=== PATIENT | female | born 1985 | race Caucasian/White ===

== ENCOUNTER 2016-02-23 18:35 | Inpatient (IN) | payer OTHER ==
[~2016-02-23] VITALS: Ht 162.6 cm; Wt 74.2 kg
[~2016-02-23 18:35] MED LIST: EFFSR150 PO; NAPR1TAB9 PO; VENL75CA73 PO
[2016-02-23] MEDS ORDERED: IBUP-1050 PO (18:57)
[2016-02-23 19:32] LABS: URINE APPEARANCE CLEAR (CLEAR); URINE BILIRUBIN NEG (NEG); URINE COLOR YELLOW; URINE NITRITE NEG (NEG); URINE PH 6.5 (4.5-7.5); UROBILINOGEN NEG (NEG)
[2016-02-23 19:34] LABS: MANUAL MICROSCOPIC REQUIRED? NO; REVIEW REQ? NO
[2016-02-23 19:35] LABS: BASO % 0.3 %; BASO ABS # 0.03 K/uL (0-0.2); COMPLETE YES; EOS % 0.6 %; HEMATOCRIT 40.8 % (37-47); IG% 0.2 %; LYMPH % 32.2 %; LYMPH ABS # 3.56 K/uL (1.2-3.4); MEAN CELL VOLUME 90.1 fL (80-100); MEAN CORPUSCULAR HEMOGLOBIN 31.8 pg (25-34); MEAN CORPUSCULAR HGB CONC 35.3 g/dl (32-36); MEAN PLATELET VOLUME 10.5 fL (7.4-10.4); MONO % 3.6 %; NEUT % 63.1 %; PLATELET COUNT 291 K/uL (130-400); RED BLOOD COUNT 4.53 M/uL (4.2-5.4); WHITE BLOOD COUNT 11.05 K/uL (4.8-10.8)
[2016-02-23 19:57] LABS: ALT/SGPT 22 U/L (12-78); BLOOD UREA NITROGEN 6 mg/dl (7-18); BUN/CREATININE RATIO 9.7 (10-20); CALCIUM 9.2 mg/dl (8.5-10.1); CARBON DIOXIDE 23 mmol/L (21-32); CHLORIDE 106 mmol/L (98-107); CREATININE 0.64 mg/dl (0.60-1.20); GLUCOSE 89 mg/dl (70-99); POTASSIUM 3.7 mmol/L (3.5-5.1); SODIUM 139 mmol/L (136-145)
[2016-02-23 19:59] LABS: BENZODIAZEPINE, URINE NEG (NEG); COCAINE,URINE NEG (NEG); PHENCYCLIDINE, URINE NEG (NEG)
[2016-02-23 20:07] LABS: ALB/GLOB RATIO 1.3 (0.9-2); ALKALINE PHOSPHATASE 56 U/L (45-117); AST/SGOT 13 U/L (15-37)
[2016-02-23 20:33] VITALS: O2SAT 97
[2016-02-23] MEDS ORDERED: NURSING VERBAL MED ORDER ONE (21:15)
[2016-02-23] MEDS ORDERED: hydrOXYzine HCL 25 MG TAB PO PRN ×2 (21:30)
[2016-02-23] MEDS ORDERED: ACETAMINOPHEN 325 MG TAB PO PRN (21:30)
[2016-02-23] MEDS ORDERED: SODIUM CHLORIDE 0.65% NA SOLN 45 ML (OCEAN) PRN (21:30)
[2016-02-23] MEDS ORDERED: ALUMINUM/MAGNESIUM SUSP 30 ML UDC PO PRN (21:30)
[2016-02-23] MEDS ORDERED: BISMUTH SUBSALICYLATE PER ML OMNICELL CHARGE PO PRN (21:30)
[2016-02-23 22:06] VITALS: BP 122/81; PULSE 67; TEMP 37; Ht 162.6 cm; Wt 74.2 kg
--- NOTE | 2016-02-23 22:51 | EMERGENCY ROOM VISIT NOTE ---
History Report prepared by Kenny: Lucho Luna Under the Supervision of: Dr. Ramiro Benjamin D.O. First contact with patient: 18:53 Chief Complaint: MENTAL HEALTH EVALUATION Stated Complaint: DEPRESSION History of Present Illness The patient is a 30 year old female who presents to the Emergency Room with complaints of sudden suicidal ideation beginning several hours prior to arrival. She states she has lost eight people in the last seven months to heroin overdoses. 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 She states she was driving today and had thoughts of turning the wheel into oncoming traffic twice today. The patient notes this scared her, so she came to the ED for willing admission. She states she has been working a lot over the past couple of months and has not had time to cope with the deaths. The patient notes she is getting back into therapy with her counselor, but they were not able to schedule her for this week. She denies using heroin but notes she has been counseled for depression, anxiety, bipolar disorder and substance abuse, although she has never received a diagnosis. The patient notes she has been drinking every night , but does not think it is an issue. She states she and her friend drink about three-fourths of a wine bottle a night. The patient denies a chance of . Source of History: patient Onset: just prior to arrival Position: other (global) Quality: other (suicidal ideation) Timing: other (sudden) Review of Systems See HPI for pertinent positives & negatives. A total of 10 systems reviewed and were otherwise negative. Past Medical & Surgical Surgical Problems: (1) S/P Family History Cancer Diabetes mellitus Heart disease Hypertension Kidney disease Lung disease Social History Smoking Status: Current Some Day Smoker Alcohol Use: none Drug Use: none Marital Status: single Housing Status: lives with family Occupation Status: employed Current/Historical Medications Scheduled PRN Ibuprofen (Advil), 200-600 MG PO Q4H PRN for Headache Allergies Coded Allergies: No Known Allergies (Verified , ., 02/23/16) Physical Exam Vital Signs Date Time Temp Pulse Resp B/P Pulse Ox O2 Delivery O2 Flow Rate FiO2 02/23/16 20:33 74 16 124/76 97 02/23/16 18:44 36.8 98 20 132/97 100 Room Air Pain Rating (0-10): 0.0 Physical Exam GENERAL: laying in bed, crying, disheveled, non-toxic EYE EXAM: normal conjunctiva OROPHARYNX: no exudate, no erythema, lips, buccal mucosa, and tongue normal and mucous membranes are moist NECK: supple, no nuchal rigidity, no adenopathy, non-tender LUNGS: Clear to auscultation. Normal chest wall mechanics HEART: Tachycardic, no murmurs, S1 normal and S2 normal ABDOMEN: abdomen soft, non-tender, normo-active bowel sounds, no masses, no rebound or guarding. BACK: Back is symmetrical on inspection and there is no deformity, no midline tenderness, no CVA tenderness. SKIN: no rashes and no bruising UPPER EXTREMITIES: upper extremities are grossly normal. LOWER EXTREMITIES: No pitting edema. NEURO EXAM: Normal sensorium, cranial nerves II-XII grossly intact, normal speech, no gross weakness of arms, no gross weakness of legs. PSYCH: Admits to suicidal ideations with plan of driving car into oncoming traffic. Denies auditory or visual hallucinations. Denies homicidal thoughts. Medical Decision & Procedures Laboratory Results 02/23/16 19:12 Red Blood Count 4.53, Mean Corpuscular Volume 90.1, Mean Corpuscular Hemoglobin 31.8, Mean Corpuscular Hemoglobin Concent 35.3, Mean Platelet Volume 10.5, Neutrophils (%) (Auto) 63.1, Lymphocytes (%) (Auto) 32.2, Monocytes (%) (Auto) 3.6, Eosinophils (%) (Auto) 0.6, Basophils (%) (Auto) 0.3, Neutrophils # (Auto) 6.97, Lymphocytes # (Auto) 3.56, Monocytes # (Auto) 0.40, Eosinophils # (Auto) 0.07, Basophils # (Auto) 0.03 02/23/16 19:12 Test 02/23/16 00:00 02/23/16 19:08 02/23/16 19:12 Urine Color YELLOW Urine Appearance CLEAR (CLEAR) Urine pH 6.5 (4.5-7.5) Urine Specific [place] 1.000 (1.000-1.030) Urine Protein NEG (NEG) Urine Glucose (UA) NEG (NEG) Urine Ketones NEG (NEG) Urine Occult Blood NEG (NEG) Urine Nitrite NEG (NEG) Urine Bilirubin NEG (NEG) Urine Urobilinogen NEG (NEG) Urine Leukocyte Esterase NEG (NEG) Urine Test NEG (NEG) Urine Opiates Screen NEG (NEG) Urine Methadone, Qualitative NEG (NEG) Urine Barbiturates NEG (NEG) Urine Phencyclidine (PCP) Level NEG (NEG) Ur Amphetamine/Methamphetamine NEG (NEG) MDMA (Ecstasy) Screen NEG (NEG) Urine Benzodiazepines Screen NEG (NEG) Urine Cocaine Metabolite NEG (NEG) Urine Marijuana (THC) NEG (NEG) Bedside Glucose 102 mg/dl (70-90) White Blood Count 11.05 K/uL (4.8-10.8) Red Blood Count 4.53 M/uL (4.2-5.4) Hemoglobin 14.4 g/dL (12.0-16.0) Hematocrit 40.8 % (37-47) Mean Corpuscular Volume 90.1 fL (80-100) Mean Corpuscular Hemoglobin 31.8 pg (25-34) Mean Corpuscular Hemoglobin Concent 35.3 g/dl (32-36) Platelet Count 291 K/uL (130-400) Mean Platelet Volume 10.5 fL (7.4-10.4) Neutrophils (%) (Auto) 63.1 % Lymphocytes (%) (Auto) 32.2 % Monocytes (%) (Auto) 3.6 % Eosinophils (%) (Auto) 0.6 % Basophils (%) (Auto) 0.3 % Neutrophils # (Auto) 6.97 K/uL (1.4-6.5) Lymphocytes # (Auto) 3.56 K/uL (1.2-3.4) Monocytes # (Auto) 0.40 K/uL (0.11-0.59) Eosinophils # (Auto) 0.07 K/uL (0-0.5) Basophils # (Auto) 0.03 K/uL (0-0.2) RDW Standard Deviation 41.3 fL (36.4-46.3) RDW Coefficient of Variation 12.7 % (11.5-14.5) Immature Granulocyte % (Auto) 0.2 % Immature Granulocyte # (Auto) 0.02 K/uL (0.00-0.02) Anion Gap 10.0 mmol/L (3-11) Est Creatinine Clear Calc Drug Dose 127.2 ml/min Estimated GFR () 137.8 Estimated GFR (Non- 118.9 BUN/Creatinine Ratio 9.7 (10-20) Calcium Level 9.2 mg/dl (8.5-10.1) Total Bilirubin 0.2 mg/dl (0.2-1) Direct Bilirubin < 0.1 mg/dl (0-0.2) Aspartate Amino Transf (AST/SGOT) 13 U/L (15-37) Alanine Aminotransferase (ALT/SGPT) 22 U/L (12-78) Alkaline Phosphatase 56 U/L (45-117) Total Protein 7.0 gm/dl (6.4-8.2) Albumin 3.9 gm/dl (3.4-5.0) Globulin 3.1 gm/dl (2.5-4.0) Albumin/Globulin Ratio 1.3 (0.9-2) Thyroid Stimulating Hormone (TSH) 1.410 uIu/ml (0.300-4.500) Ethyl Alcohol mg/dL < 3.0 mg/dl (0-3) Laboratory results per my review. ED Course ED COURSE: Vital signs were reviewed and showed tachycardia. The patients medical record was reviewed The above diagnostic studies were performed and reviewed. ED treatments and interventions as stated above. 1910: The patient was evaluated in room A6. A complete history and physical examination was performed. 2129: Upon reevaluation, the patient is doing well.I discussed my findings with the patient and she understands and agrees with the treatment plan. Based on the patients age, coexisting illnesses, exam and lab findings the decision to treat as an inpatient was made. The patient remained stable while under my care. The patient will be evaluated for further management. Medical Decision Differential diagnosis: Etiologies such as mood disorder, infection, hypoglycemia, electrolyte abnormalities, cardiac sources, intracerebral event, toxicologic, neurologic, as well as others were entertained. Patient is a 30-year-old female who presents the ER severely depressed who is been taking about killing herself. She does note that on 2 separate occasions today she thought about crashing her car into oncoming traffic. CBC along with BMP, LFTs, TSH and UA was unremarkable. Patient was evaluated by our psychiatric child care associate teacher. She agreed to sign 201. Patient was admitted to [facility]. for mood disorder with depression and suicidal ideations. Impression Primary Impression: Mood disorder Additional Impressions: Depression Suicidal ideation Scribe Attestation The scribe's documentation has been prepared under my direction and personally reviewed by me in its entirety. I confirm that the note above accurately reflects all work, treatment, procedures, and medical decision making performed by me. Departure Information Dispostion Admitted as an inpatient (Psych) Referrals Zach Mulligan M.D. (PCP) Problem Qualifiers Additional Impressions: Depression Depression Type: unspecified Qualified Codes: F32.9 - Major depressive disorder, single episode, unspecified
[2016-02-24 06:49] VITALS: BP_SYST 114; BP_SYST 121; BP_DIAS 65; BP_DIAS 72; PULSE 42; PULSE 48; TEMP 36.7
[2016-02-24 08:51] VITALS: BP 115/69; PULSE 58
[2016-02-24] MEDS ORDERED: FLUOXETINE HCL 20 MG CAP PO ONE (10:30)
--- NOTE | 2016-02-24 11:12 | HISTORY & PHYSICAL EXAMINATION ---
DATE OF ADMISSION: 02/23/2016 IDENTIFYING DATA: Francine Harp is a 30-year-old woman from [place], [place], who is admitted to our unit voluntarily with severe depression and suicidal thinking, having had thoughts to drive her car into oncoming traffic. Information is gathered from the patient and considered to be reliable. CHIEF COMPLAINT: "I've had 8 friends of heroin overdoses in the last 7 months." HISTORY OF PRESENT ILLNESS: Francine Harp is a 30-year-old woman with past psychiatric history of depression and anxiety, most recently treated at [facility]. She has had multiple trials of medications in the past which she felt were helpful but stopped either because she did not want to be on medications or because her insurance changed and she could not afford to be in treatment. She indicates a long history of depression dating back through most of her life as well as chronic anxiety. She first went into treatment in high school when she started on Celexa and had therapy. This was during a time when she was resistant to medicines and so did not stay on that as long as recommended. More recently, the patient reports that she has had 8 friends of heroin overdoses in the last 7 months. 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 She denies that she uses heroin but admittedly has friends who have become heroin addicted. She reports that over the course of the last several years, her mood has been in steady decline. She has wanted to get into treatment more recently but works 2 full-time jobs and so rarely has the opportunity. She did recently phone multiple providers to see who would be able to take her insurance and see her and was able to get an appointment at [facility] for 03/02/2016 with an intake with Ai at 8:45. Yesterday, she had gotten in her car to go to work. She had multiple thoughts about driving her car into oncoming traffic. She describes feeling "scared" and decided that she needed to get treatment because she was not sure she could keep herself safe. She had planned to come to the hospital anyway, not feeling that she could make it to the 03/02/2016 appointment. She went home and got her 11-year-old daughter who is now staying with the patient's mother. Today, the patient continued to describe her mood as depressed with suicidal thoughts. She reports chronically impaired sleep with both difficulty falling asleep as well as staying asleep. She estimates she will get 4 hours of broken sleep per night and experience nightmares every several nights. Her appetite has been pretty good and notes that her weight is up and down, currently stable. She reports anxiety that has been going on "a long time," experiences anxiety most days. She has panic attacks that occur generally when she has to perform in some way, for example being on the shooting range to qualify for gun training as part of the [employer]. She denies that she has ever experienced auditory or visual hallucinations. She admits to cutting behaviors in high school but nothing since. She is a stress eater but denies any eating disordered behaviors such as bingeing or purging. In terms of bipolar symptoms, she does talk about times when her mood is "rainbows and unicorns." These periods last for about 3 days. She talks about spending behaviors, necessitating that her mother control her money, but this sounds like a chronic issue and not isolated to specific periods. She denies any pleasure seeking behaviors. She has never been activated when on SSRIs. CURRENT MEDICATIONS: Ibuprofen p.r.n. PAST PSYCHIATRIC HISTORY: She had most recently seen Dr. Rey prior to having to change insurances. She does not currently have providers in place, but as I said, has an appointment at [facility] on 03/02/2016. She has made 1 suicide attempt 12 years ago when she found out she was . She has never been hospitalized for mental health reasons. She denies any evidence of violence to self or others in the last 6 months. PRIOR MEDICATION TRIALS: Include but are not limited to: 1. Prozac, did pretty well on it. 2. Celexa -- worked well. 3. Effexor -- felt like a zombie. ACCESS TO GUNS: Denies. Says that she is on a no-weapons protocol with the [employer]. ALLERGIES: NKDA. PAST MEDICAL HISTORY: 1. Chiari malformation, asymptomatic. 2. Denies for personal history of obesity, diabetes, dyslipidemia, hypertension or cardiovascular disease. 3. No history for head injury or seizure. 4. Tobacco use disorder -- smoking less than 10 cigarettes per day. 5. Caffeine abuse -- has cut her caffeine use down to about 2 pots per week. FAMILY HISTORY: Positive for biological father with irrational fears, paternal uncle who has been institutionalized. Maternal grandfather has struggled with drugs and alcohol, maternal grandmother has struggled with addictions to alcohol and men. There is no family history for suicide. Medically, maternal grandmother has diabetes, mother has hypertension, maternal grandmother also had a CVA. She denies family history for obesity or dyslipidemia. SUBSTANCE ABUSE HISTORY: In the last year, the patient admits to drinking alcohol regularly. She will share a bottle of wine with a friend most evenings. She denies any legal troubles as a result of substances. She does have a remote history of abusing K2 but has not used that in 2 years. She does smoke marijuana regularly which she believes helps with her anxiety and mood. Last use was on [place]. The only other substance she has used in the last year was possibly 1 line of cocaine but she cannot remember when. Remotely, she admits to the use of opiate pills, amphetamines and cocaine. She has never done intravenous drugs. She has never been in substance use treatment other than to say she did go to [facility] last week twice because it was the only facility that could take her immediately. PERSONAL HISTORY: The patient was born in [place] and moved to [place], back to [place] and several other places when her family was in the . Her parents , mother remarried to a trichologist whom she has a good relationship with. She has 2 older sisters. 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 She had been employed at [employer] but quit there after she became emotionally involved with a prisoner and was accused of doing worse which she said she did not do. 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 She is not currently in a relationship. She has an 11-year-old daughter who is currently with her mother. She does consider herself to be a spiritual individual, enjoys attending nondenominational on Sundays. She denies legal issues. 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 MENTAL STATUS EXAMINATION: A 30-year-old woman wearing glasses with her hair pulled back in a ponytail. She is appropriately dressed and groomed. She makes good eye contact. Motor behavior is significant for nervous shaking of her legs. Speech is at times loud but of normal rate and tone. Affect is somewhat labile, at times laughing and at times on the verge of tears. Mood is depressed and anxious. Thought process is organized and goal directed. She denies thought disorder in the form of hallucinations or delusions. She endorses suicidal thinking with thoughts to drive her car into oncoming traffic. She denies homicidal ideation. Today, she is fully oriented. Memory functions are intact. Fund of knowledge is intact. Intelligence is estimated to be average. Insight and judgment are impaired. VITAL SIGNS: Temp 36.7, pulse 58, respirations 16, blood pressure 115/69. LABORATORIES: 1. CBC with diff -- notable for elevated WBCs 11.05, MPV elevated 10.5. 2. Chem profile -- remarkable for random glucose 102. 3. TSH -- within normal limits at 1.410. 4. Toxicology -- negative. 5. Urinalysis -- without evidence of infection. 6. Urine test -- negative. REVIEW OF SYSTEMS: Positive for complaints of nausea, vomiting and diarrhea under stress. She reports chronic right foot soreness, believing that she may have fractured her foot 2 years ago but never sought medical treatment because she had no insurance. A minimum of 10 systems has been reviewed and otherwise found to be negative. PHYSICAL EXAMINATION: Exam performed by Dr. Benjamin in the Emergency Room last night has been reviewed and accepted for our purposes here in the mental health unit. PATIENT'S STRENGTHS AND NEEDS: 1. Strengths -- intelligence, desire to be in treatment. 2. Needs -- to abstain from all abusable substances. RISK ASSESSMENT: 1. Risk factors -- , single, chronic mental illness, substance use, previous suicide attempt, anxiety. 2. Protective factors -- no access to guns, spiritual beliefs, has an 11-year-old daughter, is employed, good support from family, no comorbid medical conditions impairing recovery. IMPRESSION: A 30-year-old woman admitted with severe depression and suicidality. She reports a long history of depression and anxiety that has in the past responded well to SSRIs. In view of that, we will restart Prozac 20 mg daily, increasing as tolerated. Risks, benefits and side effects were reviewed and accepted including the risk for worsening depression and suicidality in young folks. I have recommended she abstain from all substances while we are stabilizing her anxiety and depression. She describes periods where her mood is elevated but I do not have a sense that this reflects a bipolar symptom, although we will be cautious to any activation on an SSRI. At this time, the patient requires inpatient mental health treatment due to the severity of her condition and the risk for self-harm if discharged. DIAGNOSES: 1. Major depressive disorder, recurrent, severe, without psychotic features. 2. Generalized anxiety disorder. 3. Alcohol abuse. 4. Cannabis abuse. PLAN: Has been reviewed with Dr. Jessica Peacock. 1. Depression. -- start Prozac 20 mg daily. -- q. 15-minute checks for safety. -- encouraged participation in group and individual counseling. -- confirm that daughter is being cared for by mother. -- family meeting. -- the patient has an outpatient appointment with [facility] on 03/02/2016 and we should coordinate care with them. 2. Generalized anxiety disorder. -- Prozac as above. -- assist the patient to learning utilize healthy coping strategies. -- introduce the patient to mindfulness, relaxation and breathing exercises. 3. Alcohol abuse. -- recommend abstaining as she is being stabilized on medications. 4. Cannabis abuse. -- recommend abstaining while in mental health treatment. INITIAL HOSPITAL CARE: [id number]. MTDD
[2016-02-24 12:39] VITALS: BP 116/61; PULSE 42; TEMP 36.6
[2016-02-24 17:57] VITALS: BP 117/77; PULSE 52; TEMP 36.8
[2016-02-24 20:22] VITALS: BP 113/68; PULSE 45; TEMP 36.9
[2016-02-25 06:55] VITALS: BP_SYST 102; BP_SYST 99; BP_DIAS 62; BP_DIAS 63; PULSE 47; PULSE 59; TEMP 36.6
[2016-02-25 08:20] VITALS: BP 121/65; PULSE 61; TEMP 37
[2016-02-25] MEDS: FLUOXETINE HCL 20 MG CAP PO SCH (08:22)
--- NOTE | 2016-02-25 10:38 | Psychiatric Progress Notes ---
Progress Note Date of Service Feb 25, 2016. Interval History 30 yo female admitted 02/23 on a voluntary basis with suicidal thoughts to drive her car into oncoming traffic. she has been under stress working 2 jobs, and having lost 8 friends in 7 months to heroin overdoses. Chief Complaint "Irritable.". Subjective Patient was seen & assessed interval progress reviewed with Treatment Team. The patient says that she feels irritable and impatient today. She thinks in part she is missing cigarettes, but is also irritable after a phone conversation with her mother. Mother has been asked to come in for a family meeting, and patient perceives that she was not happy about this, not wanting to make the patient's problems hers. this was disappointing to Francine, who thinks that her mother herself could benefit from some counseling. 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 Staff report that Francine continued to have SI last evening, but today says that she has had none. Sleep was better than the night before, but broken. Review of Systems Constitutional: No chills, No fatigue, No fever, No problem reported, No sweats , No weakness, No weight loss ENT: No dental problems, No hearing loss, No nasal symptoms, No problem reported, No sore throat, No tinnitus, No trouble swallowing, No unusual epistaxis Respiratory: No cough, No dyspnea at rest, No dyspnea on exertion, No hemoptysis, No problem reported, No shortness of breath, No sputum, No wheezing Cardiovascular: No PND, No chest pain, No claudication, No edema, No orthopnea , No palpitations, No problem reported Abdomen: No GI bleeding, No constipation, No diarrhea, No nausea, No pain, No problem reported, No vomiting Musculoskeletal: No calf pain, No joint pain, No muscle pain, No problem reported, No swelling Neurologic: No balance problems, No memory loss, No numbness/tingling, No paralysis, No problem reported, No vertigo, No weakness Psychiatric: + anxiety, + depression symptoms, + problem reported ("agitated") Integumentary: No bleeding, No color change, No itch, No new/changing skin lesions, No problem reported, No rash Sleep Information Total Hours of Sleep: 6.00 Meal Information Percent of Breakfast Consumed: 100 Percent of Dinner Consumed: 100 Mental Status Exam During interview pt is: alert and oriented, cooperative Appearance: appropriately dressed, appropriately groomed Eye contact is: good Motor behavior is: steady gait & station, no abnormal motor movements Speech: normal in rate, rhythm & volume Affect: mood congruent, blunted Mood is: depressed, irritable Thought process: goal directed, linear, logical Thought content: reality based without delusions Suicidal thought are: denied Homicidal thoughts are: denied Hallucinations: denies auditory, denies visual Cognition: memory grossly intact, attention grossly intact Intelligence estimated to be: average Insight: impaired Judgement: impaired Medication Trials (1) Past psych meds Prozac- worked pretty well Celexa- worked well Effexor- felt like a zombie Last Edited By: Irina Friedman on Feb 25, 2016 10:25 Impression Adjusting well to the structure and support of the unit, but still depressed and agitated. Started prozac and is tolerating without side effects. Mother coming for family meeting tomorrow. Will need to be cautious for activation on SSRI's as she reports some symptoms of elevated moods in the past, that could represent an underlying bipolar diathesis. Continued Inpatient Care The patient continues to require inpatient care due to the severity of her condition and the risk for self harm if discharged. Plan (1) Major depressive disorder, recurrent severe without psychotic features 02/24 - Continue Prozac 20 mg. daily - Family meeting scheduled with mother for tomorrow - Q 15 min checks for safety - Encourage participation in group and individual counseling - The patient will need psychiatric aftercare - Assist the patient to learn and utilize healthy coping strategies (2) KIM (generalized anxiety disorder) 02/24 - Prozac as above -Introduce the patient to mindfulness, relaxation and breathing exercises (3) Polysubstance abuse 02/24 - Recommend abstinence - Encourage OP substance abuse treatment - Educate the patient about the effects of substances on mood Discharge / Aftercare Planning Primary Care Physician: Name: Dr. Mulligan Psychiatrist: Name: will go through [facility] Therapist: Name: Ai Bonilla [facility] Date of Appointment: Mar 02, 2016 Time of Appointment: 8:45am Organizational Development Director: Name: none Visit Code E&M Code: 22750 Inventory Assets Strengths: Willingness to engage in treatment, strong work ethic Needs: To abstain from abusable substances Risk Factors Assessment : Yes /single/: Yes Higher / Fall in social status: No Access to guns: No Health problems: No Mental Health Diagnoses: Yes Substance use disorders: Yes Previous attempt: Yes Previous psychiatric stay: No Smoker: Yes Protective Factors Assessment L[employer] beliefs: Yes : No Responsible for young children: No Employed: Yes Stable relationships: No Supportive family: Yes Data Vital Signs Last 24 Hrs: Date Time Temp Pulse Resp B/P Pulse Ox O2 Delivery O2 Flow Rate FiO2 02/25/16 08:20 37.0 61 16 121/65 02/25/16 06:55 36.6 47 16 102/62 59 99/63 02/24/16 20:22 36.9 45 16 113/68 02/24/16 17:57 36.8 52 16 117/77 02/24/16 12:39 36.6 42 16 116/61 Meds Administered Last 24 Hrs: Meds Administered (Past 24Hrs) Medications (Trade) Dose Ordered Sig/Aracely Route Start Time Stop Time Status Last Admin Dose Admin Fluoxetine HCl (Prozac Cap) 20 mg QAM PO 02/25/16 09:00 03/26/16 08:59 02/25/16 08:22 20 MG Fluoxetine HCl (Prozac Cap) 20 mg NOW ONCE PO 02/24/16 10:30 02/24/16 10:31 DC 02/24/16 10:42 20 MG Lab Results Last 24 Hrs: 02/23/16 19:12 Red Blood Count 4.53, Mean Corpuscular Volume 90.1, Mean Corpuscular Hemoglobin 31.8, Mean Corpuscular Hemoglobin Concent 35.3, Mean Platelet Volume 10.5, Neutrophils (%) (Auto) 63.1, Lymphocytes (%) (Auto) 32.2, Monocytes (%) (Auto) 3.6, Eosinophils (%) (Auto) 0.6, Basophils (%) (Auto) 0.3, Neutrophils # (Auto) 6.97, Lymphocytes # (Auto) 3.56, Monocytes # (Auto) 0.40, Eosinophils # (Auto) 0.07, Basophils # (Auto) 0.03 02/23/16 19:12 Test 02/23/16 00:00 02/23/16 19:08 02/23/16 19:12 Urine Color YELLOW Urine Appearance CLEAR (CLEAR) Urine pH 6.5 (4.5-7.5) Urine Specific [employer] [place] 1.000 (1.000-1.030) Urine Protein NEG (NEG) Urine Glucose (UA) NEG (NEG) Urine Ketones NEG (NEG) Urine Occult Blood NEG (NEG) Urine Nitrite NEG (NEG) Urine Bilirubin NEG (NEG) Urine Urobilinogen NEG (NEG) Urine Leukocyte Esterase NEG (NEG) Urine Test NEG (NEG) Urine Opiates Screen NEG (NEG) Urine Methadone, Qualitative NEG (NEG) Urine Barbiturates NEG (NEG) Urine Phencyclidine (PCP) Level NEG (NEG) Ur Amphetamine/Methamphetamine NEG (NEG) MDMA (Ecstasy) Screen NEG (NEG) Urine Benzodiazepines Screen NEG (NEG) Urine Cocaine Metabolite NEG (NEG) Urine Marijuana (THC) NEG (NEG) Bedside Glucose 102 mg/dl (70-90) White Blood Count 11.05 K/uL (4.8-10.8) Red Blood Count 4.53 M/uL (4.2-5.4) Hemoglobin 14.4 g/dL (12.0-16.0) Hematocrit 40.8 % (37-47) Mean Corpuscular Volume 90.1 fL (80-100) Mean Corpuscular Hemoglobin 31.8 pg (25-34) Mean Corpuscular Hemoglobin Concent 35.3 g/dl (32-36) Platelet Count 291 K/uL (130-400) Mean Platelet Volume 10.5 fL (7.4-10.4) Neutrophils (%) (Auto) 63.1 % Lymphocytes (%) (Auto) 32.2 % Monocytes (%) (Auto) 3.6 % Eosinophils (%) (Auto) 0.6 % Basophils (%) (Auto) 0.3 % Neutrophils # (Auto) 6.97 K/uL (1.4-6.5) Lymphocytes # (Auto) 3.56 K/uL (1.2-3.4) Monocytes # (Auto) 0.40 K/uL (0.11-0.59) Eosinophils # (Auto) 0.07 K/uL (0-0.5) Basophils # (Auto) 0.03 K/uL (0-0.2) RDW Standard Deviation 41.3 fL (36.4-46.3) RDW Coefficient of Variation 12.7 % (11.5-14.5) Immature Granulocyte % (Auto) 0.2 % Immature Granulocyte # (Auto) 0.02 K/uL (0.00-0.02) Anion Gap 10.0 mmol/L (3-11) Est Creatinine Clear Calc Drug Dose 127.2 ml/min Estimated GFR () 137.8 Estimated GFR (Non- 118.9 BUN/Creatinine Ratio 9.7 (10-20) Calcium Level 9.2 mg/dl (8.5-10.1) Total Bilirubin 0.2 mg/dl (0.2-1) Direct Bilirubin < 0.1 mg/dl (0-0.2) Aspartate Amino Transf (AST/SGOT) 13 U/L (15-37) Alanine Aminotransferase (ALT/SGPT) 22 U/L (12-78) Alkaline Phosphatase 56 U/L (45-117) Total Protein 7.0 gm/dl (6.4-8.2) Albumin 3.9 gm/dl (3.4-5.0) Globulin 3.1 gm/dl (2.5-4.0) Albumin/Globulin Ratio 1.3 (0.9-2) Thyroid Stimulating Hormone (TSH) 1.410 uIu/ml (0.300-4.500) Ethyl Alcohol mg/dL < 3.0 mg/dl (0-3)
[2016-02-25 12:32] VITALS: BP 128/71; PULSE 42; TEMP 36.4
[2016-02-25] MEDS: NICOTINE POLACRILEX 2 MG GUM MT PRN ×2 (15:32→18:03)
[2016-02-25 16:11] VITALS: BP 119/68; PULSE 45; TEMP 36.8
[2016-02-25 20:19] VITALS: BP 118/72; PULSE 45; TEMP 37.1
[2016-02-25] MEDS: MAGNESIUM HYDROXIDE SUSP 30 ML UDC PO PRN (20:41)
[2016-02-26 06:52] VITALS: BP_SYST 109; BP_SYST 97; BP_DIAS 54; BP_DIAS 59; PULSE 42; PULSE 48; TEMP 36.5
[2016-02-26 08:05] VITALS: BP 118/68; PULSE 41; TEMP 36.5
[2016-02-26] MEDS: FLUOXETINE HCL 20 MG CAP PO SCH (08:08)
[2016-02-26] MEDS: NICOTINE POLACRILEX 2 MG GUM MT PRN ×2 (09:25→17:36)
[2016-02-26 13:03] VITALS: BP 118/71; PULSE 46; TEMP 36.6
--- NOTE | 2016-02-26 13:23 | Psychiatric Progress Notes ---
Progress Note Date of Service Feb 26, 2016. Interval History 30 yo female admitted 02/23 on a voluntary basis with suicidal thoughts to drive her car into oncoming traffic. she has been under stress working 2 jobs, and having lost 8 friends in 7 months to heroin overdoses. Chief Complaint "Not very good". Subjective Patient was seen & assessed interval progress reviewed with Treatment Team. The patient says that she had a bad meeting with her mother yesterday. Can't recall the specifics, "I think I blocked it out.". She describes her mother as supportive but not sympathetic, and not being on the same page. She talked about feeling "stuck", not moving her life forward, and feeling that it would have to be ok for now, since she can't change it. In exploring what she enjoys in life and what supports her self esteem, she says "work". She doesn 't like being at home and doesn't necessarily like the role as parent. Beyond this, the only thing she says that she likes is camping. Her mood was better this AM , having rated it 7/10, but is much lower now, feeling depressed and frustrated with her life. She does not feel that she is ready to go home, "It will be worse there.". Sleep remains disturbed, waking several times in the night. Appetite is good. She denies SI/HI. Review of Systems Constitutional: No chills, No fatigue, No fever, No problem reported, No sweats , No weakness, No weight loss ENT: No dental problems, No hearing loss, No nasal symptoms, No problem reported, No sore throat, No tinnitus, No trouble swallowing, No unusual epistaxis Respiratory: No cough, No dyspnea at rest, No dyspnea on exertion, No hemoptysis, No problem reported, No shortness of breath, No sputum, No wheezing Abdomen: + constipation (BM today) Musculoskeletal: No calf pain, No joint pain, No muscle pain, No problem reported, No swelling Neurologic: No balance problems, No memory loss, No numbness/tingling, No paralysis, No problem reported, No vertigo, No weakness Psychiatric: + anxiety, + depression symptoms, + insomnia Integumentary: No bleeding, No color change, No itch, No new/changing skin lesions, No problem reported, No rash Sleep Information Total Hours of Sleep: 7.00 Meal Information Percent of Breakfast Consumed: 100 Percent of Lunch Consumed: 100 Percent of Dinner Consumed: 100 Mental Status Exam During interview pt is: alert and oriented, cooperative Appearance: appropriately dressed, appropriately groomed Eye contact is: good Motor behavior is: steady gait & station, no abnormal motor movements Speech: normal in rate, rhythm & volume Affect: mood congruent, blunted Mood is: depressed, irritable Thought process: goal directed, linear, logical Thought content: reality based without delusions Suicidal thought are: denied Homicidal thoughts are: denied Hallucinations: denies auditory, denies visual Cognition: memory grossly intact, attention grossly intact Intelligence estimated to be: average Insight: impaired Judgement: impaired Medication Trials (1) Past psych meds Prozac- worked pretty well Celexa- worked well Effexor- felt like a zombie Last Edited By: Irina Friedman on Feb 25, 2016 10:25 Impression Remains depressed and anxious, not liking her life, and feeling helpless to change it. Family meeting was difficult: mother did not appreciate being brought into the situation and doesn't support the patient's decisions in general, but helps her with her daughter when needed. Patient was described as childlike during the meeting, sounding petulant and immature. Is tolerating start of Prozac 20 mg. without side effects. No evidence of withdrawal and so will DC AWSS protocol. Continued Inpatient Care The patient continues to require inpatient care due to the severity of her condition and the risk for self harm if discharged. Plan (1) Major depressive disorder, recurrent severe without psychotic features 02/24 - Continue Prozac 20 mg. daily - Family meeting scheduled with mother for tomorrow - Q 15 min checks for safety - Encourage participation in group and individual counseling - The patient will need psychiatric aftercare - Assist the patient to learn and utilize healthy coping strategies (2) KIM (generalized anxiety disorder) 02/24 - Prozac as above -Introduce the patient to mindfulness, relaxation and breathing exercises (3) Polysubstance abuse 02/24 - Recommend abstinence - Encourage OP substance abuse treatment - Educate the patient about the effects of substances on mood 02/25 - DC AWSS protocol, no evidence of withdrawal syndrome Discharge / Aftercare Planning Primary Care Physician: Name: Dr. Mulligan Appointment Notes: As needed Psychiatrist: Name: will go through [facility] Therapist: Name: Ai Irene [facility] Date of Appointment: Mar 02, 2016 Time of Appointment: 8:45am Puller Through: Name: none Visit Code E&M Code: 78851 Inventory Assets Strengths: Willingness to engage in treatment, strong work ethic Needs: To abstain from abusable substances Risk Factors Assessment : Yes /single/: Yes Higher / Fall in social status: No Access to guns: No Health problems: No Mental Health Diagnoses: Yes Substance use disorders: Yes Previous attempt: Yes Previous psychiatric stay: No Smoker: Yes Protective Factors Assessment [employer] beliefs: Yes : No Responsible for young children: No Employed: Yes Stable relationships: No Supportive family: Yes Data Vital Signs Last 24 Hrs: Date Time Temp Pulse Resp B/P Pulse Ox O2 Delivery O2 Flow Rate FiO2 02/26/16 13:03 36.6 46 16 118/71 02/26/16 08:05 36.5 41 16 118/68 02/26/16 06:52 36.5 42 14 97/54 48 109/59 02/25/16 20:19 37.1 45 16 118/72 02/25/16 16:11 36.8 45 16 119/68 Meds Administered Last 24 Hrs: Meds Administered (Past 24Hrs) Medications (Trade) Dose Ordered Sig/Aracely Route Start Time Stop Time Status Last Admin Dose Admin Fluoxetine HCl (Prozac Cap) 20 mg QAM PO 02/25/16 09:00 03/26/16 08:59 02/26/16 08:08 20 MG Nicotine Polacrilex (Nicorette 2MG Gum) 1 piece PRN PRN MT 02/25/16 15:30 03/26/16 15:29 02/26/16 09:25 1 PIECE Lab Results Last 24 Hrs: 02/23/16 19:12 Red Blood Count 4.53, Mean Corpuscular Volume 90.1, Mean Corpuscular Hemoglobin 31.8, Mean Corpuscular Hemoglobin Concent 35.3, Mean Platelet Volume 10.5, Neutrophils (%) (Auto) 63.1, Lymphocytes (%) (Auto) 32.2, Monocytes (%) (Auto) 3.6, Eosinophils (%) (Auto) 0.6, Basophils (%) (Auto) 0.3, Neutrophils # (Auto) 6.97, Lymphocytes # (Auto) 3.56, Monocytes # (Auto) 0.40, Eosinophils # (Auto) 0.07, Basophils # (Auto) 0.03 02/23/16 19:12 Test 02/23/16 00:00 02/23/16 19:08 02/23/16 19:12 Urine Color YELLOW Urine Appearance CLEAR (CLEAR) Urine pH 6.5 (4.5-7.5) Urine Specific [place] 1.000 (1.000-1.030) Urine Protein NEG (NEG) Urine Glucose (UA) NEG (NEG) Urine Ketones NEG (NEG) Urine Occult Blood NEG (NEG) Urine Nitrite NEG (NEG) Urine Bilirubin NEG (NEG) Urine Urobilinogen NEG (NEG) Urine Leukocyte Esterase NEG (NEG) Urine Test NEG (NEG) Urine Opiates Screen NEG (NEG) Urine Methadone, Qualitative NEG (NEG) Urine Barbiturates NEG (NEG) Urine Phencyclidine (PCP) Level NEG (NEG) Ur Amphetamine/Methamphetamine NEG (NEG) MDMA (Ecstasy) Screen NEG (NEG) Urine Benzodiazepines Screen NEG (NEG) Urine Cocaine Metabolite NEG (NEG) Urine Marijuana (THC) NEG (NEG) Bedside Glucose 102 mg/dl (70-90) White Blood Count 11.05 K/uL (4.8-10.8) Red Blood Count 4.53 M/uL (4.2-5.4) Hemoglobin 14.4 g/dL (12.0-16.0) Hematocrit 40.8 % (37-47) Mean Corpuscular Volume 90.1 fL (80-100) Mean Corpuscular Hemoglobin 31.8 pg (25-34) Mean Corpuscular Hemoglobin Concent 35.3 g/dl (32-36) Platelet Count 291 K/uL (130-400) Mean Platelet Volume 10.5 fL (7.4-10.4) Neutrophils (%) (Auto) 63.1 % Lymphocytes (%) (Auto) 32.2 % Monocytes (%) (Auto) 3.6 % Eosinophils (%) (Auto) 0.6 % Basophils (%) (Auto) 0.3 % Neutrophils # (Auto) 6.97 K/uL (1.4-6.5) Lymphocytes # (Auto) 3.56 K/uL (1.2-3.4) Monocytes # (Auto) 0.40 K/uL (0.11-0.59) Eosinophils # (Auto) 0.07 K/uL (0-0.5) Basophils # (Auto) 0.03 K/uL (0-0.2) RDW Standard Deviation 41.3 fL (36.4-46.3) RDW Coefficient of Variation 12.7 % (11.5-14.5) Immature Granulocyte % (Auto) 0.2 % Immature Granulocyte # (Auto) 0.02 K/uL (0.00-0.02) Anion Gap 10.0 mmol/L (3-11) Est Creatinine Clear Calc Drug Dose 127.2 ml/min Estimated GFR () 137.8 Estimated GFR (Non- 118.9 BUN/Creatinine Ratio 9.7 (10-20) Calcium Level 9.2 mg/dl (8.5-10.1) Total Bilirubin 0.2 mg/dl (0.2-1) Direct Bilirubin < 0.1 mg/dl (0-0.2) Aspartate Amino Transf (AST/SGOT) 13 U/L (15-37) Alanine Aminotransferase (ALT/SGPT) 22 U/L (12-78) Alkaline Phosphatase 56 U/L (45-117) Total Protein 7.0 gm/dl (6.4-8.2) Albumin 3.9 gm/dl (3.4-5.0) Globulin 3.1 gm/dl (2.5-4.0) Albumin/Globulin Ratio 1.3 (0.9-2) Thyroid Stimulating Hormone (TSH) 1.410 uIu/ml (0.300-4.500) Ethyl Alcohol mg/dL < 3.0 mg/dl (0-3)
--- NOTE | 2016-02-26 15:14 | Psych Management Progress Note ---
Psychiatry Miscellaneous Date of Service: Feb 26, 2016. I personally met patient today and participated in the medical decision making outlined by ABIGAIL Eaton. Patient expressed understanding of her treatment plan and had no concerns re: her care here or med plan.
[2016-02-27 06:57] VITALS: BP_SYST 109; BP_SYST 118; BP_DIAS 64; BP_DIAS 66; PULSE 42; PULSE 47; TEMP 36.8
[2016-02-27] MEDS: FLUOXETINE HCL 20 MG CAP PO SCH (09:01)
--- NOTE | 2016-02-27 10:06 | Psych Management Progress Note ---
Psychiatry Miscellaneous Date of Service: Feb 27, 2016. Patient seen, MS assessed. Notes difficulty with garage worker awakening. Recognizes that she has conflicts with mother but would also "go to war for her ". Cooperative with care and treatment plan as outlined by MOLDED PARTS INSPECTOR. Encouraged participation in therapeutic activities.
--- NOTE | 2016-02-27 10:51 | Psychiatric Progress Notes ---
Progress Note Date of Service Feb 27, 2016. Interval History 30 yo female admitted 02/23 on a voluntary basis with suicidal thoughts to drive her car into oncoming traffic. she has been under stress working 2 jobs, and having lost 8 friends in 7 months to heroin overdoses. Chief Complaint "I didn't sleep well last night.". Subjective Patient was seen & assessed interval progress reviewed with Treatment Team. The patient says that she could not fall asleep last night, even after taking a prn vistaril. She has a long history of impaired sleep, and would like to try some meds to help. She says that she's at a point in her life where she needs to make some changes. She generally keeps herself busy because "down time is not my friend", but needs to find some balance to her life. She generally work so hard that on the one day off she does have, she is too tired to do the things that she needs to do. Her mother and daughter visited last night, and generally had a good visit. Mother was social which surprised Francine, but there was no serious discussion. Her mood today is good, rated 7-8.5/10 and is denying SI. Anxiety is "there", "not as bad". She is also complaining of constipation since she is not running or smoking. Review of Systems Constitutional: + fatigue ENT: No dental problems, No hearing loss, No nasal symptoms, No problem reported, No sore throat, No tinnitus, No trouble swallowing, No unusual epistaxis Respiratory: No cough, No dyspnea at rest, No dyspnea on exertion, No hemoptysis, No problem reported, No shortness of breath, No sputum, No wheezing Cardiovascular: No PND, No chest pain, No claudication, No edema, No orthopnea , No palpitations, No problem reported Abdomen: + constipation Musculoskeletal: No calf pain, No joint pain, No muscle pain, No problem reported, No swelling Neurologic: No balance problems, No memory loss, No numbness/tingling, No paralysis, No problem reported, No vertigo, No weakness Psychiatric: + anxiety, + depression symptoms (improving) Integumentary: No bleeding, No color change, No itch, No new/changing skin lesions, No problem reported, No rash Sleep Information Total Hours of Sleep: 7.50 Meal Information Percent of Breakfast Consumed: 100 Percent of Lunch Consumed: 100 Percent of Dinner Consumed: 100 Mental Status Exam During interview pt is: alert and oriented, cooperative Appearance: appropriately dressed, appropriately groomed Eye contact is: good Motor behavior is: steady gait & station, no abnormal motor movements Speech: normal in rate, rhythm & volume Affect: mood congruent, blunted Mood is: depressed, irritable Thought process: goal directed, linear, logical Thought content: reality based without delusions Suicidal thought are: denied Homicidal thoughts are: denied Hallucinations: denies auditory, denies visual Cognition: memory grossly intact, attention grossly intact Intelligence estimated to be: average Insight: impaired Judgement: impaired Medication Trials (1) Past psych meds Prozac- worked pretty well Celexa- worked well Effexor- felt like a zombie Last Edited By: Irina Friedman on Feb 25, 2016 10:25 Impression Some improvement to mood and anxiety today, but very poor sleep. Will trial trazodone 50 mg. HS for sleep. R/B/A reviewed and accepted. Says she may have been on it before. Will continue Prozac 20 mg. If improvement continues, could consider discharge early in the week. Continued Inpatient Care The patient continues to require inpatient care due to the severity of her condition and the risk for self harm if discharged. Plan (1) Major depressive disorder, recurrent severe without psychotic features 02/24 - Continue Prozac 20 mg. daily - Family meeting scheduled with mother for tomorrow - Q 15 min checks for safety - Encourage participation in group and individual counseling - The patient will need psychiatric aftercare - Assist the patient to learn and utilize healthy coping strategies 02/26 - Trazodone 50 mg. HS for insomnia - Continue Prozac 20 mg. daily (2) KIM (generalized anxiety disorder) 02/24 - Prozac as above -Introduce the patient to mindfulness, relaxation and breathing exercises 02/26 - Continue prozac 20 mg. - Explore life balance with patient (3) Polysubstance abuse 02/24 - Recommend abstinence - Encourage OP substance abuse treatment - Educate the patient about the effects of substances on mood 02/25 - DC AWSS protocol, no evidence of withdrawal syndrome Discharge / Aftercare Planning Primary Care Physician: Name: Dr. Mulligan Appointment Notes: As needed Psychiatrist: Name: will go through [facility] Therapist: Name: Ai Bonilla [facility] Date of Appointment: Mar 02, 2016 Time of Appointment: 8:45am Children'S Minister: Name: none Visit Code E&M Code: 97757 Inventory Assets Strengths: Willingness to engage in treatment, strong work ethic Needs: To abstain from abusable substances Risk Factors Assessment : Yes /single/: Yes Higher / Fall in social status: No Access to guns: No Health problems: No Mental Health Diagnoses: Yes Substance use disorders: Yes Previous attempt: Yes Previous psychiatric stay: No Smoker: Yes Protective Factors Assessment Congregation beliefs: Yes : No Responsible for young children: No Employed: Yes Stable relationships: No Supportive family: Yes Data Vital Signs Last 24 Hrs: Date Time Temp Pulse Resp B/P Pulse Ox O2 Delivery O2 Flow Rate FiO2 02/27/16 06:57 36.8 42 16 118/64 47 109/66 02/26/16 13:03 36.6 46 16 118/71 Meds Administered Last 24 Hrs: Meds Administered (Past 24Hrs) Medications (Trade) Dose Ordered Sig/Aracely Route Start Time Stop Time Status Last Admin Dose Admin Nicotine Polacrilex (Nicorette 2MG Gum) 1 piece PRN PRN MT 02/25/16 15:30 03/26/16 15:29 02/26/16 17:36 1 PIECE Lab Results Last 24 Hrs: 02/23/16 19:12 Red Blood Count 4.53, Mean Corpuscular Volume 90.1, Mean Corpuscular Hemoglobin 31.8, Mean Corpuscular Hemoglobin Concent 35.3, Mean Platelet Volume 10.5, Neutrophils (%) (Auto) 63.1, Lymphocytes (%) (Auto) 32.2, Monocytes (%) (Auto) 3.6, Eosinophils (%) (Auto) 0.6, Basophils (%) (Auto) 0.3, Neutrophils # (Auto) 6.97, Lymphocytes # (Auto) 3.56, Monocytes # (Auto) 0.40, Eosinophils # (Auto) 0.07, Basophils # (Auto) 0.03 02/23/16 19:12 Test 02/23/16 00:00 02/23/16 19:08 02/23/16 19:12 Urine Color YELLOW Urine Appearance CLEAR (CLEAR) Urine pH 6.5 (4.5-7.5) Urine Specific [place] 1.000 (1.000-1.030) Urine Protein NEG (NEG) Urine Glucose (UA) NEG (NEG) Urine Ketones NEG (NEG) Urine Occult Blood NEG (NEG) Urine Nitrite NEG (NEG) Urine Bilirubin NEG (NEG) Urine Urobilinogen NEG (NEG) Urine Leukocyte Esterase NEG (NEG) Urine Test NEG (NEG) Urine Opiates Screen NEG (NEG) Urine Methadone, Qualitative NEG (NEG) Urine Barbiturates NEG (NEG) Urine Phencyclidine (PCP) Level NEG (NEG) Ur Amphetamine/Methamphetamine NEG (NEG) MDMA (Ecstasy) Screen NEG (NEG) Urine Benzodiazepines Screen NEG (NEG) Urine Cocaine Metabolite NEG (NEG) Urine Marijuana (THC) NEG (NEG) Bedside Glucose 102 mg/dl (70-90) White Blood Count 11.05 K/uL (4.8-10.8) Red Blood Count 4.53 M/uL (4.2-5.4) Hemoglobin 14.4 g/dL (12.0-16.0) Hematocrit 40.8 % (37-47) Mean Corpuscular Volume 90.1 fL (80-100) Mean Corpuscular Hemoglobin 31.8 pg (25-34) Mean Corpuscular Hemoglobin Concent 35.3 g/dl (32-36) Platelet Count 291 K/uL (130-400) Mean Platelet Volume 10.5 fL (7.4-10.4) Neutrophils (%) (Auto) 63.1 % Lymphocytes (%) (Auto) 32.2 % Monocytes (%) (Auto) 3.6 % Eosinophils (%) (Auto) 0.6 % Basophils (%) (Auto) 0.3 % Neutrophils # (Auto) 6.97 K/uL (1.4-6.5) Lymphocytes # (Auto) 3.56 K/uL (1.2-3.4) Monocytes # (Auto) 0.40 K/uL (0.11-0.59) Eosinophils # (Auto) 0.07 K/uL (0-0.5) Basophils # (Auto) 0.03 K/uL (0-0.2) RDW Standard Deviation 41.3 fL (36.4-46.3) RDW Coefficient of Variation 12.7 % (11.5-14.5) Immature Granulocyte % (Auto) 0.2 % Immature Granulocyte # (Auto) 0.02 K/uL (0.00-0.02) Anion Gap 10.0 mmol/L (3-11) Est Creatinine Clear Calc Drug Dose 127.2 ml/min Estimated GFR () 137.8 Estimated GFR (Non- 118.9 BUN/Creatinine Ratio 9.7 (10-20) Calcium Level 9.2 mg/dl (8.5-10.1) Total Bilirubin 0.2 mg/dl (0.2-1) Direct Bilirubin < 0.1 mg/dl (0-0.2) Aspartate Amino Transf (AST/SGOT) 13 U/L (15-37) Alanine Aminotransferase (ALT/SGPT) 22 U/L (12-78) Alkaline Phosphatase 56 U/L (45-117) Total Protein 7.0 gm/dl (6.4-8.2) Albumin 3.9 gm/dl (3.4-5.0) Globulin 3.1 gm/dl (2.5-4.0) Albumin/Globulin Ratio 1.3 (0.9-2) Thyroid Stimulating Hormone (TSH) 1.410 uIu/ml (0.300-4.500) Ethyl Alcohol mg/dL < 3.0 mg/dl (0-3)
[2016-02-27] MEDS: POLYETHYLENE (MIRALAX) 17 GM PACK PO PRN (11:25)
[2016-02-27] MEDS: NICOTINE POLACRILEX 2 MG GUM MT PRN (15:13)
[2016-02-27] MEDS: MAGNESIUM HYDROXIDE SUSP 30 ML UDC PO PRN (19:58)
[2016-02-27] MEDS ORDERED: TRAZODONE HCL 50 MG TAB PO SCH (22:00)
[2016-02-28 06:50] VITALS: BP_SYST 111; BP_SYST 121; BP_DIAS 66; BP_DIAS 69; PULSE 41; PULSE 42; TEMP 36.8
[2016-02-28] MEDS: FLUOXETINE HCL 20 MG CAP PO SCH (09:04)
[2016-02-28] MEDS: NICOTINE POLACRILEX 2 MG GUM MT PRN (09:31)
[2016-02-28] MEDS: POLYETHYLENE (MIRALAX) 17 GM PACK PO PRN (10:42)
--- NOTE | 2016-02-28 10:43 | Psychiatric Progress Notes ---
Progress Note Date of Service Feb 28, 2016. Interval History 30 yo female admitted 02/23 on a voluntary basis with suicidal thoughts to drive her car into oncoming traffic. she has been under stress working 2 jobs, and having lost 8 friends in 7 months to heroin overdoses. Chief Complaint "I don't like that trazodone.". Subjective Patient was seen & assessed interval progress reviewed with nursing. She starts by saying that she felt "drugged" on trazodone and does not want to continue. Sleep was only minimally improved with it. She says that her mother visited again last night and describes it as "pleasant". She is feeling "better " and thinks she is ready to go home and take on her life. She still thinks that it would be a good idea for her to leave this area to get away from her mother so that they can have more "adult to adult" interactions rather than the parent child interactions. Her anxiety to day is "a little" but thinks it is normal. Denies SI/HI, rates her mood 7/10. Review of Systems Constitutional: + fatigue ENT: No dental problems, No hearing loss, No nasal symptoms, No problem reported, No sore throat, No tinnitus, No trouble swallowing, No unusual epistaxis Respiratory: No cough, No dyspnea at rest, No dyspnea on exertion, No hemoptysis, No problem reported, No shortness of breath, No sputum, No wheezing Cardiovascular: + problem reported (had small BM today) Abdomen: No GI bleeding, No constipation, No diarrhea, No nausea, No pain, No problem reported, No vomiting Musculoskeletal: No calf pain, No joint pain, No muscle pain, No problem reported, No swelling Psychiatric: + problem reported (Reports improved mood) Integumentary: No bleeding, No color change, No itch, No new/changing skin lesions, No problem reported, No rash Sleep Information Total Hours of Sleep: 6.50 Meal Information Percent of Breakfast Consumed: 100 Percent of Lunch Consumed: 100 Percent of Dinner Consumed: 100 Mental Status Exam During interview pt is: alert and oriented, cooperative Appearance: appropriately dressed, appropriately groomed Eye contact is: good Motor behavior is: steady gait & station, no abnormal motor movements Speech: normal in rate, rhythm & volume Affect: mood congruent, blunted Mood is: depressed, irritable Thought process: goal directed, linear, logical Thought content: reality based without delusions Suicidal thought are: denied Homicidal thoughts are: denied Hallucinations: denies auditory, denies visual Cognition: memory grossly intact, attention grossly intact Intelligence estimated to be: average Insight: impaired Judgement: impaired Medication Trials (1) Past psych meds Prozac- worked pretty well Celexa- worked well Effexor- felt like a zombie Last Edited By: Irina Friedman on Feb 25, 2016 10:25 Impression Mood continues to improve and she has submitted her 72 hr notice wanting to leave. She denies SI. Will DC trazodone as she did not like the way she felt with it. Will continue Prozac. If progress continues, will consider DC tomorrow. Continued Inpatient Care The patient continues to require inpatient care due to the severity of her condition and the risk for self harm if discharged. Plan (1) Major depressive disorder, recurrent severe without psychotic features 02/24 - Continue Prozac 20 mg. daily - Family meeting scheduled with mother for tomorrow - Q 15 min checks for safety - Encourage participation in group and individual counseling - The patient will need psychiatric aftercare - Assist the patient to learn and utilize healthy coping strategies 02/26 - Trazodone 50 mg. HS for insomnia - Continue Prozac 20 mg. daily 02/27 - DC trazodone (2) KIM (generalized anxiety disorder) 02/24 - Prozac as above -Introduce the patient to mindfulness, relaxation and breathing exercises 02/26 - Continue prozac 20 mg. - Explore life balance with patient (3) Polysubstance abuse 02/24 - Recommend abstinence - Encourage OP substance abuse treatment - Educate the patient about the effects of substances on mood 02/25 - DC AWSS protocol, no evidence of withdrawal syndrome Discharge / Aftercare Planning Primary Care Physician: Name: Dr. Mulligan Appointment Notes: As needed Psychiatrist: Name: will go through [facility] Therapist: Name: Ai Bonilla [facility] Date of Appointment: Mar 02, 2016 Time of Appointment: 8:45am Director Of Development And Marketing: Name: none Visit Code E&M Code: 36176 Inventory Assets Strengths: Willingness to engage in treatment, strong work ethic Needs: To abstain from abusable substances Risk Factors Assessment : Yes /single/: Yes Higher / Fall in social status: No Access to guns: No Health problems: No Mental Health Diagnoses: Yes Substance use disorders: Yes Previous attempt: Yes Previous psychiatric stay: No Smoker: Yes Protective Factors Assessment [place] beliefs: Yes : No Responsible for young children: No Employed: Yes Stable relationships: No Supportive family: Yes Data Vital Signs Last 24 Hrs: Date Time Temp Pulse Resp B/P Pulse Ox O2 Delivery O2 Flow Rate FiO2 02/28/16 06:50 36.8 41 16 111/69 42 121/66 Meds Administered Last 24 Hrs: Meds Administered (Past 24Hrs) Medications (Trade) Dose Ordered Sig/Aracely Route Start Time Stop Time Status Last Admin Dose Admin Polyethylene (Miralax Powder Packet) 17 gm DAILY PRN PO 02/27/16 10:45 03/28/16 10:44 02/27/16 11:25 17 GM Trazodone HCl (Desyrel Tab) 50 mg HS PO 02/27/16 22:00 03/28/16 21:59 02/27/16 21:10 50 MG Lab Results Last 24 Hrs: 02/23/16 19:12 Red Blood Count 4.53, Mean Corpuscular Volume 90.1, Mean Corpuscular Hemoglobin 31.8, Mean Corpuscular Hemoglobin Concent 35.3, Mean Platelet Volume 10.5, Neutrophils (%) (Auto) 63.1, Lymphocytes (%) (Auto) 32.2, Monocytes (%) (Auto) 3.6, Eosinophils (%) (Auto) 0.6, Basophils (%) (Auto) 0.3, Neutrophils # (Auto) 6.97, Lymphocytes # (Auto) 3.56, Monocytes # (Auto) 0.40, Eosinophils # (Auto) 0.07, Basophils # (Auto) 0.03 02/23/16 19:12 Test 02/23/16 00:00 02/23/16 19:08 02/23/16 19:12 Urine Color YELLOW Urine Appearance CLEAR (CLEAR) Urine pH 6.5 (4.5-7.5) Urine Specific [place] 1.000 (1.000-1.030) Urine Protein NEG (NEG) Urine Glucose (UA) NEG (NEG) Urine Ketones NEG (NEG) Urine Occult Blood NEG (NEG) Urine Nitrite NEG (NEG) Urine Bilirubin NEG (NEG) Urine Urobilinogen NEG (NEG) Urine Leukocyte Esterase NEG (NEG) Urine Test NEG (NEG) Urine Opiates Screen NEG (NEG) Urine Methadone, Qualitative NEG (NEG) Urine Barbiturates NEG (NEG) Urine Phencyclidine (PCP) Level NEG (NEG) Ur Amphetamine/Methamphetamine NEG (NEG) MDMA (Ecstasy) Screen NEG (NEG) Urine Benzodiazepines Screen NEG (NEG) Urine Cocaine Metabolite NEG (NEG) Urine Marijuana (THC) NEG (NEG) Bedside Glucose 102 mg/dl (70-90) White Blood Count 11.05 K/uL (4.8-10.8) Red Blood Count 4.53 M/uL (4.2-5.4) Hemoglobin 14.4 g/dL (12.0-16.0) Hematocrit 40.8 % (37-47) Mean Corpuscular Volume 90.1 fL (80-100) Mean Corpuscular Hemoglobin 31.8 pg (25-34) Mean Corpuscular Hemoglobin Concent 35.3 g/dl (32-36) Platelet Count 291 K/uL (130-400) Mean Platelet Volume 10.5 fL (7.4-10.4) Neutrophils (%) (Auto) 63.1 % Lymphocytes (%) (Auto) 32.2 % Monocytes (%) (Auto) 3.6 % Eosinophils (%) (Auto) 0.6 % Basophils (%) (Auto) 0.3 % Neutrophils # (Auto) 6.97 K/uL (1.4-6.5) Lymphocytes # (Auto) 3.56 K/uL (1.2-3.4) Monocytes # (Auto) 0.40 K/uL (0.11-0.59) Eosinophils # (Auto) 0.07 K/uL (0-0.5) Basophils # (Auto) 0.03 K/uL (0-0.2) RDW Standard Deviation 41.3 fL (36.4-46.3) RDW Coefficient of Variation 12.7 % (11.5-14.5) Immature Granulocyte % (Auto) 0.2 % Immature Granulocyte # (Auto) 0.02 K/uL (0.00-0.02) Anion Gap 10.0 mmol/L (3-11) Est Creatinine Clear Calc Drug Dose 127.2 ml/min Estimated GFR () 137.8 Estimated GFR (Non- 118.9 BUN/Creatinine Ratio 9.7 (10-20) Calcium Level 9.2 mg/dl (8.5-10.1) Total Bilirubin 0.2 mg/dl (0.2-1) Direct Bilirubin < 0.1 mg/dl (0-0.2) Aspartate Amino Transf (AST/SGOT) 13 U/L (15-37) Alanine Aminotransferase (ALT/SGPT) 22 U/L (12-78) Alkaline Phosphatase 56 U/L (45-117) Total Protein 7.0 gm/dl (6.4-8.2) Albumin 3.9 gm/dl (3.4-5.0) Globulin 3.1 gm/dl (2.5-4.0) Albumin/Globulin Ratio 1.3 (0.9-2) Thyroid Stimulating Hormone (TSH) 1.410 uIu/ml (0.300-4.500) Ethyl Alcohol mg/dL < 3.0 mg/dl (0-3)
[2016-02-28] MEDS: MAGNESIUM HYDROXIDE SUSP 30 ML UDC PO PRN (20:43)
[2016-02-29 06:58] VITALS: BP_SYST 109; BP_SYST 121; BP_DIAS 64; BP_DIAS 71; PULSE 41; PULSE 42; TEMP 36.7
[2016-02-29] MEDS: FLUOXETINE HCL 20 MG CAP PO SCH (09:05)
[2016-02-29] MEDS ORDERED: NCR2 MT (09:35)
[2016-02-29] MEDS ORDERED: FLUO20CA36 PO (09:35)
--- NOTE | 2016-02-29 09:46 | Discharge Instructions ---
Discharge Information Report Includes Report will include the: Discharge Instructions & Summary Admission Admission Date / Time: Feb 23, 2016 at 21:07 Reason for Admission: Depression Discharge Discharge Diagnosis / Problem: Depression Condition at Discharge: Good Discharge Goals Goal(s): Decrease discomfort, Improve disease control, Prevent Disease Progression Activity Recommendations Activity Limitations: resume your previous activity . Instructions / Follow-Up Instructions / Follow-Up . SPECIAL CARE INSTRUCTIONS: 1. Follow through with your scheduled aftercare appointments. If unable to keep an appointment, please call to reschedule. 2. Take your medication only as prescribed. Medication should not be changed or stopped without the approval of your doctor. In the event of worsening symptoms or concerns about side effects, contact your doctor immediately. 3. Utilize new healthy coping skills, anger management skills, and stress management skills learned during your hospitalization. Journal feelings and process them with a support person. Identify stressors or situations that may result in relapse, deterioration or inappropriate behaviors and develop a plan to deal with those issues. 4. If your coping skills are ineffective and you are in crisis, contact your outpatient providers for direction. If unable to reach your providers, please call the CAN HELP LINE AT or go to the closest Emergency Room. 5. Avoid alcohol and un-prescribed drugs. 6. You have been provided with the Mental Health Advance Directives Pamphlet for your review. AFTERCARE APPOINTMENTS: * Please call your insurance company prior to your scheduled appointment to confirm your aftercare providers are covered. Take your insurance information to your appointments. . Discharge / Aftercare Planning Primary Care Physician: Name: Dr. Mulligan Appointment Notes: As needed Psychiatrist: Name: will go through [facility] Therapist: Name Of Therapist: Ai Bonilla [facility] Date of Appointment: Mar 02, 2016 Time of Appointment: 8:45am Pulmonary Function Technician: Name: none . Follow-Up Care Plan for Follow-Up Care: The patient will have an intake for psychiatric services at [facility] on 03/02/16 Current Hospital Diet Patient's current hospital diet: Regular Diet Discharge Diet Recommended Diet: Regular Diet Procedures Procedures Performed: No Pending Studies Pending Studies at Discharge: No Medical Emergencies . Who to Call and When: Medical Emergencies: For questions or emergencies related to your hospital stay, please contact the Inpatient Behavioral Health Unit at [phone]. A planting machine crewman is on-call 29/08 for the Behavioral Health Unit for emergencies At any time you feel your situation is an emergency, you may also call 911 immediately. . Non-Emergent Contact Non-Emergency issues call your: Primary Care Provider, Psychiatrist, Therapist Advance Directives Existing Advance Directive: Yes Do You Have an Existing Mental: No Existing Living Will: Yes Existing Power of Bag Machine Adjuster: Yes The Person Making Decisions: Mother: Lilia Harp Advance Directives Info Given: To Pt/S.O. Discharge Summary Admission HPI Per the Admitting provider: Please see attached H&P Hospital Course (1) Major depressive disorder, recurrent severe without psychotic features 02/24 - Continue Prozac 20 mg. daily - Family meeting scheduled with mother for tomorrow - Q 15 min checks for safety - Encourage participation in group and individual counseling - The patient will need psychiatric aftercare - Assist the patient to learn and utilize healthy coping strategies 02/26 - Trazodone 50 mg. HS for insomnia - Continue Prozac 20 mg. daily 02/27 - DC trazodone (2) KIM (generalized anxiety disorder) 02/24 - Prozac as above -Introduce the patient to mindfulness, relaxation and breathing exercises 02/26 - Continue prozac 20 mg. - Explore life balance with patient (3) Polysubstance abuse 02/24 - Recommend abstinence - Encourage OP substance abuse treatment - Educate the patient about the effects of substances on mood 02/25 - DC AWSS protocol, no evidence of withdrawal syndrome Risk Factors Assessment : Yes /single/: Yes Higher / Fall in social status: No Access to guns: No Health problems: No Mental Health Diagnoses: Yes Substance use disorders: Yes Previous attempt: Yes Previous psychiatric stay: No Smoker: Yes Protective Factors Assessment [employer] beliefs: Yes : No Responsible for young children: No Employed: Yes Stable relationships: No Supportive family: Yes Day of Discharge Assessment COURSE OF HOSPITALIZATION: During the patient's 6 day stay, she was restarted on Prozac 20 mg daily and tolerated this without side effect. She remained quite anxious with suicidal thinking during the first part of her stay in response to the multiple losses she has had and a difficult relationship with her mother. Mother was involved in a family meeting. During meeting mother was very araya and unsympathetic with Jessenia acting very childlike. Mother did not want to be involved in such a meeting but said that she would be supportive. Jessenia floated the idea of moving to [place] which the mother did not support. Jessenia understands that her mother has been supportive of her but does not have the kind of adults [place] relationship that makes very comfortable. She decided after the meeting to rely on her mother less and to make some alterations in her work schedule to allow for more life balance. She improved throughout her hospitalization and was without suicidal thinking by day of discharge. She did submit a 72 hour notice to insure discharge. DAY OF DISCHARGE ASSESSMENT: Today the patient is requesting discharge. She feels improved over admission, without any suicidal thinking and ready to go home. She has thought about giving her 2 week notice at one of her jobs in maintaining the other in order to give her more time at home area and she would also like to pursue other work ventures. Today she is casually and appropriately dressed and groomed. Gait and station are within normal limits. Eye contact is good. Affect is smiling. Speech is of normal rate volume and tone. Thoughts are organized and goal directed and without evidence of thought disorder. He sent and remote memory are intact per conversation. Intelligence is estimated to be average. Insight and judgment are improved over admission. Laboratory 02/23/16 19:12 Red Blood Count 4.53, Mean Corpuscular Volume 90.1, Mean Corpuscular Hemoglobin 31.8, Mean Corpuscular Hemoglobin Concent 35.3, Mean Platelet Volume 10.5, Neutrophils (%) (Auto) 63.1, Lymphocytes (%) (Auto) 32.2, Monocytes (%) (Auto) 3.6, Eosinophils (%) (Auto) 0.6, Basophils (%) (Auto) 0.3, Neutrophils # (Auto) 6.97, Lymphocytes # (Auto) 3.56, Monocytes # (Auto) 0.40, Eosinophils # (Auto) 0.07, Basophils # (Auto) 0.03 02/23/16 19:12 Test 02/23/16 00:00 02/23/16 19:08 02/23/16 19:12 Urine Color YELLOW Urine Appearance CLEAR (CLEAR) Urine pH 6.5 (4.5-7.5) Urine Specific [place] 1.000 (1.000-1.030) Urine Protein NEG (NEG) Urine Glucose (UA) NEG (NEG) Urine Ketones NEG (NEG) Urine Occult Blood NEG (NEG) Urine Nitrite NEG (NEG) Urine Bilirubin NEG (NEG) Urine Urobilinogen NEG (NEG) Urine Leukocyte Esterase NEG (NEG) Urine Test NEG (NEG) Urine Opiates Screen NEG (NEG) Urine Methadone, Qualitative NEG (NEG) Urine Barbiturates NEG (NEG) Urine Phencyclidine (PCP) Level NEG (NEG) Ur Amphetamine/Methamphetamine NEG (NEG) MDMA (Ecstasy) Screen NEG (NEG) Urine Benzodiazepines Screen NEG (NEG) Urine Cocaine Metabolite NEG (NEG) Urine Marijuana (THC) NEG (NEG) Bedside Glucose 102 mg/dl (70-90) White Blood Count 11.05 K/uL (4.8-10.8) Red Blood Count 4.53 M/uL (4.2-5.4) Hemoglobin 14.4 g/dL (12.0-16.0) Hematocrit 40.8 % (37-47) Mean Corpuscular Volume 90.1 fL (80-100) Mean Corpuscular Hemoglobin 31.8 pg (25-34) Mean Corpuscular Hemoglobin Concent 35.3 g/dl (32-36) Platelet Count 291 K/uL (130-400) Mean Platelet Volume 10.5 fL (7.4-10.4) Neutrophils (%) (Auto) 63.1 % Lymphocytes (%) (Auto) 32.2 % Monocytes (%) (Auto) 3.6 % Eosinophils (%) (Auto) 0.6 % Basophils (%) (Auto) 0.3 % Neutrophils # (Auto) 6.97 K/uL (1.4-6.5) Lymphocytes # (Auto) 3.56 K/uL (1.2-3.4) Monocytes # (Auto) 0.40 K/uL (0.11-0.59) Eosinophils # (Auto) 0.07 K/uL (0-0.5) Basophils # (Auto) 0.03 K/uL (0-0.2) RDW Standard Deviation 41.3 fL (36.4-46.3) RDW Coefficient of Variation 12.7 % (11.5-14.5) Immature Granulocyte % (Auto) 0.2 % Immature Granulocyte # (Auto) 0.02 K/uL (0.00-0.02) Anion Gap 10.0 mmol/L (3-11) Est Creatinine Clear Calc Drug Dose 127.2 ml/min Estimated GFR () 137.8 Estimated GFR (Non- 118.9 BUN/Creatinine Ratio 9.7 (10-20) Calcium Level 9.2 mg/dl (8.5-10.1) Total Bilirubin 0.2 mg/dl (0.2-1) Direct Bilirubin < 0.1 mg/dl (0-0.2) Aspartate Amino Transf (AST/SGOT) 13 U/L (15-37) Alanine Aminotransferase (ALT/SGPT) 22 U/L (12-78) Alkaline Phosphatase 56 U/L (45-117) Total Protein 7.0 gm/dl (6.4-8.2) Albumin 3.9 gm/dl (3.4-5.0) Globulin 3.1 gm/dl (2.5-4.0) Albumin/Globulin Ratio 1.3 (0.9-2) Thyroid Stimulating Hormone (TSH) 1.410 uIu/ml (0.300-4.500) Ethyl Alcohol mg/dL < 3.0 mg/dl (0-3) Total Time Total Time Spent (min): Greater than 30 minutes Total Time Included: examination of the patient, discharge planning, medication reconciliation, communication with other providers Tobacco Cessation at Discharge FDA approved Prescription: nicotine replacement product (Nicotine gum)
[2016-02-29] MEDS: NICOTINE POLACRILEX 2 MG GUM MT PRN (10:56)
== END 2016-02-29 14:03 | disposition home or self-care (01) | DRG 885 ==
LOC: ENRESERVDT → ENRESERVTM → C.EDB 18:38 → C.MHU 21:07
PROVIDERS: ADMIT Psychiatry & Neurology Child & Adolescent Psychiatry; ATTEND Psychiatry & Neurology Psychiatry
DX: F33.2 Major depressive disorder, recurrent severe without psychotic features (principal); R45.851 Suicidal ideations; F41.1 Generalized anxiety disorder; F10.10 Alcohol abuse, uncomplicated; F12.10 Cannabis abuse, uncomplicated; G47.00 Insomnia, unspecified; F17.210 Nicotine dependence, cigarettes, uncomplicated; F19.10 Other psychoactive substance abuse, uncomplicated; F15.10 Other stimulant abuse, uncomplicated; Q07.00 Arnold-Chiari syndrome without spina bifida or hydrocephalus

== ENCOUNTER 2021-01-07 06:30 | Inpatient (IN) ==
[2021-01-07 07:25] LABS: Amphetamines+Metham, Urine Neg (Neg); Barbiturates, Urine Neg (Neg); Benzodiazepine, Urine Neg (Neg); Cocaine, Urine Neg (Neg); MDMA (Ecstacy), Urine Neg (Neg); Methadone, Urine Neg (Neg); Opiate, Urine Neg (Neg); Phencyclidine, Urine Neg (Neg)
[2021-01-07] MEDS ORDERED: cefOXitin 2,000 MG in DEXTROSE 5% 50 ML IV STA (07:33)
[2021-01-07] MEDS ORDERED: SODIUM CHLORIDE 0.9% 250 ML IV PRN (07:37)
[2021-01-07] MEDS ORDERED: LACTATED RINGER'S 1,000 ML IV SCH (07:45)
[2021-01-07] MEDS ORDERED: CITRIC ACID/SODIUM CITRATE 15 ML UDC PO SCH (07:45)
[2021-01-07] MEDS ORDERED: fentaNYL citrate 100 MCG/2 ML VIAL ONE (07:59)
[2021-01-07] MEDS ORDERED: PROPOFOL IV EMULSION 10 MG/ML 20 ML VIAL IV ONE (07:59)
[2021-01-07] MEDS ORDERED: SUCCINYLCHOLINE CHLORIDE 20 MG/ML 10 ML VIAL IV ONE (07:59)
[2021-01-07] MEDS ORDERED: OXYTOCIN 10 UNITS/ML VIAL ONE (07:59)
[2021-01-07] MEDS ORDERED: ONDANSETRON INJ 2 MG/ML 2 ML VIAL ONE (07:59)
[2021-01-07] MEDS ORDERED: DEXAMETHASONE SOD INJ 4 MG/ML VIAL ONE (07:59)
[2021-01-07 08:16] LABS: Basophils # (auto) 0.02 K/uL (0-0.2); Basophils % (auto) 0.1 %; Eosinophils # (auto) 0.23 K/uL (0-0.5); Eosinophils % (auto) 1.5 %; Hematocrit (blood only) 28.3 % (37-47); Hemoglobin 9.2 g/dL (12.0-16.0); Immature Granulocytes # (auto) 0.06 K/uL (0.00-0.02); Immature Granulocytes % (auto) 0.4 %; Lymphocytes # (auto) 2.65 K/uL (1.2-3.4); Lymphocytes % (auto) 17.2 %; Mean Corpuscular Hemoglobin 26.2 pg (25-34); Mean Corpuscular Hgb Conc 32.5 g/dL (32-36); Mean Corpuscular Volume 80.6 fL (80-100); Mean Platelet Volume 10.2 fL (7.4-10.4); Monocytes # (auto) 0.65 K/uL (0.11-0.59); Monocytes % (auto) 4.2 %; Neutrophils # (auto) 11.81 K/uL (1.4-6.5); Neutrophils % (auto) 76.6 %; Platelet Count 421 K/uL (130-400); RDW Coefficient of Variation 14.8 % (11.5-14.5); RDW Standard Deviation 43.6 fL (36.4-46.3); Red Blood Count 3.51 M/uL (4.2-5.4); White Blood Count 15.42 K/uL (4.8-10.8)
[2021-01-07] MEDS ORDERED: ROCURONIUM BROMIDE 10 MG/ML 5 ML VIAL IV ONE (09:23)
[2021-01-07] MEDS ORDERED: GLYCOPYRROLATE 0.2 MG/ML VIAL ONE (09:23)
[2021-01-07] MEDS ORDERED: NEOSTIGMINE METHYLSULFATE 1 MG/ML 10ML VIAL ONE (09:23)
[2021-01-07] MEDS ORDERED: OXYTOCIN 10 UNITS/ML VIAL IM ONE (09:34)
[2021-01-07] MEDS ORDERED: ONDANSETRON INJ 2 MG/ML 2 ML VIAL IV PRN ×2 (09:46→09:50)
[2021-01-07] MEDS ORDERED: PROMETHAZINE HCL 6.25 MG in SODIUM CHLORIDE 0.9% 50 ML IV PRN (09:46)
[2021-01-07] MEDS ORDERED: ATROPINE SULFATE 0.1 MG/ML 10ML SYR IV PRN (09:46)
[2021-01-07] MEDS ORDERED: fentaNYL citrate 100 MCG/2 ML VIAL IV PRN (09:46)
[2021-01-07] MEDS ORDERED: ePHEDrine sulfate 50 MG/ML AMP IV PRN (09:46)
--- NOTE | 2021-01-07 09:49 | Post Operative Brief Note ---
Immediate Post Op Note v1 Date of Surgery January 07, 2021 Pre & Post Diagnosis Operation Date: 01/07/21 08:20 Pre-Op Diagnosis: Previous Section. Rupture of membranes. Macrosomia. Post-Op Diagnosis: Same as above. I identified the patient and participated in the time-out.: Yes Procedure Operation Date: 01/07/21 08:20 Actual Procedures p Section in LD delivery of live female child at 0905(Bilateral) - Parrish Duncan MD Surgeon Parrish Duncan MD Mine Captain Dr Celaya Estimated Blood Loss 500 Findings Consistent with Post-Op Diagnosis no adhesions Drains Lora Catheter (placed in labor and delivery draining clear yellow urine) Anesthesia Type General Complications none
[2021-01-07] MEDS ORDERED: MEPERIDINE HCL 50 MG/ML CARP IV PRN (09:50)
[2021-01-07] MEDS ORDERED: HYDROCORTISONE ACETATE 25 MG SUPP PR PRN (09:50)
[2021-01-07] MEDS ORDERED: BENZOCAINE 20% AER SPR 82.5 GM CAN EXT PRN (09:50)
[2021-01-07] MEDS ORDERED: PROMETHAZINE HCL 25 MG in SODIUM CHLORIDE 0.9% 50 ML IV PRN (09:50)
[2021-01-07] MEDS ORDERED: diphenhydrAMINE Capsule 25 MG CAP PO PRN (09:50)
[2021-01-07] MEDS ORDERED: SUPERCREAM 0.870% 15 GM JAR EXT PRN (09:50)
[2021-01-07] MEDS ORDERED: DIPHTHERIA/TETANUS/PERTUSSIS 0.5 ML SYR/VIAL IM ONE (09:50)
[2021-01-07] MEDS ORDERED: MAGNESIUM HYDROXIDE SUSP 30 ML UDC PO PRN (09:50)
[2021-01-07] MEDS ORDERED: ZOLPIDEM TARTRATE 5 MG TAB PO PRN (09:50)
[2021-01-07] MEDS ORDERED: SENNA 8.6 MG TAB PO PRN (09:50)
[2021-01-07] MEDS ORDERED: diphenhydrAMINE 50 MG/ML VIAL IV PRN (09:50)
[2021-01-07] MEDS ORDERED: KETOROLAC 30 MG/ML VIAL IV PRN (09:50)
[2021-01-07] MEDS: HYDROmorphone INJ 1 MG/ML SYRINGE IV PRN ×4 (10:16→10:54)
--- NOTE | 2021-01-07 10:33 | Anesthesiology Progress Note ---
Date of Service January 07, 2021 Anesthesia Post Procedure Vital Signs Vital Signs: Temp Pulse Resp BP 01/07/21 06:43 36.6 C 93 H 16 159/80 H Transfer of Care Handoff Completed per policy Notes Mental Status: alert / awake / arousable and participated in evaluation Patient Amnestic to Procedure: Yes Nausea / Vomiting: adequately controlled Pain: improving with treatment Airway Patency, RR, SpO2: stable & adequate BP & HR: stable & adequate Hydration State: stable & adequate Anesthetic Complications: no major complications apparent and Pt Satisfied with anesthetic care
[2021-01-07] MEDS ORDERED: HYDROmorphone INJ 1 MG/ML SYRINGE IV STA (11:02)
--- NOTE | 2021-01-07 11:16 | Operative Report (OR) ---
DATE OF PROCEDURE: 01/07/2021. The patient is a 2, para 2, blood type is A positive. PREOPERATIVE DIAGNOSES: Intrauterine at 38 weeks 5 days, cecille rupture of membranes, previ ous , hypertension. POSTOPERATIVE DIAGNOSES: Intrauterine at 38 weeks 5 days, cecille rupture of membranes, prev ious , hypertension, delivered macrosomic female . SURGEON: Cora Duncan MD. INJECTION MOLDING MACHINE TENDER: Donovan Celaya MD. ESTIMATED BLOOD LOSS: 500 mL ANESTHESIA: General. OPERATIVE FINDING AND PROCEDURE: The patient was brought to the OR table, correctly identified by graciela estrada and conversation. A catheter was placed in the bladder, connected to gravity drainage. Compre ssion stockings were applied. Lower abdomen and umbilical area was painted with an alcohol based yenifer rilizing solution and draped in the usual sterile fashion. General anesthesia was then administered and as soon as it was effective, the procedure was started. Incision was made through a previous sca r, carried down to the anterior fascia by sharp dissection. Hemostasis was secured by electrocauteri zation. Fascia was incised transversely, from the underlying muscle by blunt and sharp dis section. Recti muscles were in the midline, exposing the peritoneum, which was carefully r aised and entered. Incision was made above the vesicouterine fold. Bladder was undermined bluntly, pushed out of the op erative field. Lower uterine segment was scored and entered with the scissors. Clear amniotic fluid was seen at this time. Vectis retractor was applied to the infant's head with fundal pressure, the head was delivered. Infant was suctioned through the mouth and the nose. Shoulders were delivered. Finally, cord blood was stripped, the cord was clamped and cut and the was attended to by the recovery assistant who was scrubbed and present at the time of delivery. Cord blood was taken. Then, navid centa was removed manually, sent for examination. 10 units of Pitocin was injected directly into the uterus. Uterus was brought out through the incisi on. Uterine cavity was wiped clean with a clean sponge. Myometrium was approximated in layers. The muscular layer was approximated with a continuous interlocking suture of heavy chromic and a second layer was approximated with a continuous interlocking suture of heavy duty Vicryl and then there was about 5 [id number] sutures of Vicryl, which was placed over this to further the approximation, a good thick approximation of the lower uterine segment. The bladder flap was restored with a running 3-0 plain suture. Pelvis was cleansed of all blood clots and debris. Uterine incision was checked and found to be hemostatic. Tubes and ovaries were normal. There were reinserted into the abdominal cavity. Careful anatomical approximation was now performed. The peritoneum was closed with a mattr ess suture of chromic catgut. Recti muscles were approximated with interrupted [id number] sutur e chromic catgut. Fascia was closed with continuous interlocking suture of Vicryl on each side tied in the midline. Subcutaneous was approximated with a continuous plain. The skin edges were approxim ated with staple clips. Job ID: [id number]
[2021-01-07] MEDS ORDERED: HYDROmorphone PCA 30 MG/30 ML IV PRN (11:21)
[2021-01-07] MEDS ORDERED: NALOXONE HCL 0.4 MG/1 ML VIAL/CARP IV PRN (11:21)
[2021-01-07] MEDS ORDERED: SODIUM CHLORIDE 0.9% 1000ML 1,000 ML IV SCH (11:30)
[2021-01-07] MEDS ORDERED: OXYTOCIN 20 UNITS in LACTATED RINGER'S 1,000 ML IV SCH (12:00)
[2021-01-07] MEDS ORDERED: FLUARIX QUADRIVALENT 0.5 ML SYR IM ONE (12:35)
[2021-01-07] MEDS: LABETALOL HCL 200 MG TAB PO SCH ×2 (17:49→23:48)
[2021-01-07] MEDS: DOCUSATE SODIUM 100 MG CAP PO SCH (20:17)
[2021-01-07] MEDS: SIMETHICONE 80 MG CHEW PO SCH (20:19)
[2021-01-07] MEDS: LACTATED RINGER'S 1,000 ML IV SCH (20:20)
[2021-01-07] MEDS ORDERED: LABETALOL HCL 100 MG TAB PO SCH (21:00)
[2021-01-08] MEDS: LACTATED RINGER'S 1,000 ML IV SCH (04:36)
[2021-01-08 07:14] LABS: Hemoglobin 7.6 g/dL (12.0-16.0); Mean Corpuscular Hemoglobin 25.7 pg (25-34); Mean Corpuscular Hgb Conc 31.7 g/dL (32-36); Mean Corpuscular Volume 81.1 fL (80-100); Mean Platelet Volume 10.1 fL (7.4-10.4); Platelet Count 382 K/uL (130-400); RDW Coefficient of Variation 14.9 % (11.5-14.5); RDW Standard Deviation 43.9 fL (36.4-46.3); Red Blood Count 2.96 M/uL (4.2-5.4); White Blood Count 19.38 K/uL (4.8-10.8)
[2021-01-08 07:31] LABS: Basophils # (auto) 0.02 K/uL (0-0.2); Basophils % (auto) 0.1 %; Eosinophils # (auto) 0.07 K/uL (0-0.5); Eosinophils % (auto) 0.4 %; Immature Granulocytes % (auto) 0.5 %; Lymphocytes # (auto) 3.44 K/uL (1.2-3.4); Lymphocytes % (auto) 17.8 %; Monocytes # (auto) 1.22 K/uL (0.11-0.59); Monocytes % (auto) 6.3 %; Neutrophils # (auto) 14.53 K/uL (1.4-6.5); Neutrophils % (auto) 74.9 %; RBC Morphology Unremarkable
[2021-01-08] MEDS: DOCUSATE SODIUM 100 MG CAP PO SCH ×2 (08:42→22:17)
[2021-01-08] MEDS: FERROUS SULFATE 325 MG TAB PO SCH (08:42)
[2021-01-08] MEDS: SIMETHICONE 80 MG CHEW PO SCH ×3 (08:42→18:27)
[2021-01-08] MEDS: LABETALOL HCL 200 MG TAB PO SCH ×3 (08:43→22:17)
[2021-01-08] MEDS: PRENATAL VITAMIN 1 TAB PO SCH (08:43)
--- NOTE | 2021-01-08 12:31 | Obstetrical Progress Note ---
Date of Service January 08, 2021 Assessment & Plan Admission and Anticipated Discharge Date Admission Date: January 07, 2021 Subjective abdomen soft and non tender bowel sounds present and normal bandage removed incision is clean and dry no calf tenderness ambulating well vaginal bleeding scant hgb 7.6 Results & Data ([facility]) Vital Signs (Past 12 Hours) Vital Signs Temp Pulse Resp BP Pulse Ox 01/08/21 04:14 36.7 C 67 18 150/72 H 96
[2021-01-08] MEDS: oxyCODONE/ACETAMINOPHEN 5mg/325mg TAB PO PRN ×2 (14:40→18:24)
[2021-01-08] MEDS: IBUPROFEN 600 MG TAB PO PRN (18:23)
[2021-01-08] MEDS ORDERED: bisacodyL 5 MG TABEC PO SCH (20:00)
[2021-01-09] MEDS: IBUPROFEN 600 MG TAB PO PRN ×4 (00:59→17:17)
[2021-01-09] MEDS: oxyCODONE/ACETAMINOPHEN 5mg/325mg TAB PO PRN ×4 (01:00→17:16)
[2021-01-09 07:31] LABS: Hematocrit (blood only) 23.7 % (37-47); Hemoglobin 7.3 g/dL (12.0-16.0)
[2021-01-09] MEDS: SIMETHICONE 80 MG CHEW PO SCH ×5 (08:20→20:08)
[2021-01-09] MEDS: DOCUSATE SODIUM 100 MG CAP PO SCH ×2 (08:21→20:08)
[2021-01-09] MEDS: PRENATAL VITAMIN 1 TAB PO SCH (08:21)
[2021-01-09] MEDS: FERROUS SULFATE 325 MG TAB PO SCH (08:21)
[2021-01-09] MEDS: LABETALOL HCL 200 MG TAB PO SCH ×3 (08:22→20:08)
--- NOTE | 2021-01-09 09:36 | Obstetrical Progress Note ---
Date of Service January 09, 2021 Assessment & Plan Admission and Anticipated Discharge Date Admission Date: January 07, 2021 Subjective abdomen soft and non tender incision is clean and dry passing flatus no calf tenderness ambulating well vaginal bleeding scant hgb 7.3 Results & Data ([facility]) Vital Signs (Past 12 Hours) Vital Signs Temp Pulse Resp BP Pulse Ox 01/09/21 07:27 36.7 C 79 18 143/84 H 95 01/09/21 01:19 90 131/81 01/08/21 22:00 36.9 C 73 18 144/77 H 96
[2021-01-09] MEDS ORDERED: bisacodyL 10 MG SUPP PR PRN (09:50)
[2021-01-09] MEDS ORDERED: Nursing to Pharmacy Communication SCH (18:30)
[2021-01-09] MEDS: LACTATED RINGER'S 1,000 ML IV SCH (18:49)
[2021-01-10] MEDS: IBUPROFEN 600 MG TAB PO PRN ×2 (06:07→10:14)
[2021-01-10] MEDS: oxyCODONE/ACETAMINOPHEN 5mg/325mg TAB PO PRN ×2 (06:07→10:15)
[2021-01-10] MEDS: SIMETHICONE 80 MG CHEW PO SCH (08:16)
[2021-01-10] MEDS: PRENATAL VITAMIN 1 TAB PO SCH (08:16)
[2021-01-10] MEDS: DOCUSATE SODIUM 100 MG CAP PO SCH (08:16)
[2021-01-10] MEDS: LABETALOL HCL 200 MG TAB PO SCH (08:16)
[2021-01-10] MEDS: FERROUS SULFATE 325 MG TAB PO SCH (08:16)
--- NOTE | 2021-01-10 10:11 | Obstetrical Progress Note ---
Date of Service January 10, 2021 Assessment & Plan Admission and Anticipated Discharge Date Admission Date: January 07, 2021 Subjective abdomen soft and non tender passing flatus incision is clean and dry no calf tenderness ambulating well vaginal bleeding scant hgb 7.3 Results & Data ([facility]) Vital Signs (Past 12 Hours) Vital Signs Temp Pulse Resp BP Pulse Ox 01/10/21 08:05 36.8 C 77 16 133/84 98 01/09/21 23:00 36.8 C 75 16 128/75 98
[2021-01-10 10:26] LABS: Hematocrit (blood only) 24.9 % (37-47); Hemoglobin 7.8 g/dL (12.0-16.0)
--- NOTE | 2021-01-10 13:26 | Discharge Summary (DS) ---
DATE OF NOTE: 01/10/2021. The patient is a 4, para 2, blood type A positive, group B strep negative, had a previous hugh arean section. Presently was scheduled for repeat section. was complicated by hy pertension for which she ended up on labetalol. At the time of admission, she was on 100 mg 3 times a day. A day prior to her scheduled section, she called with cecille rupture of membranes. She was admi tted to the hospital, cecille rupture of membranes were confirmed. She was having contractions, an urg ent section was then performed under general anesthesia. Her preoperative hemoglobin was 9. 7. At the time of the , estimated blood loss was only about 500 mL. It should also be noted that the baby's weight was 10 pounds 5 ounces. Postoperatively, the patient did well, although her hemoglobin did drop to 7.3. Her labetalol dose h ad to be increased from 100 mg 3 times a day to 200 mg 3 times a day and she was given iron and vitam ins and also instructed to continue to take vitamins and supplemental iron when she got home . She remained afebrile throughout her entire postoperative course. The bandage was removed on the f irst postoperative day. Within 24 hours, she was ambulating well, eating well, passing gas. On third postoperative day, she was ready for discharge. Incision was clean and dry. Pain was well controll ed with oral pain medicine. She was given prescriptions for ibuprofen and Percocet and also labetalol 200 mg 3 times a day. She was told to return to the office to have removal of robyn within about a week and she also had an appointment with her therapist concerning any possible recurrence of postp artum depression. Job ID: [id number]
== END 2021-01-10 12:15 | disposition home or self-care (01) | DRG 787 ==
LOC: OPB 06:30 → 4S1 06:33 → 4S2 08:30

== ENCOUNTER 2022-05-03 20:01 | Observation (INO) ==
[2022-05-03] MEDS ORDERED: SODIUM CHLORIDE 0.9% 1000ML 1,000 ML IV ONE ×2 (20:44→22:25)
[2022-05-03 21:44] LABS: Hematocrit (blood only) 43.1 % (37.0-47.0); Hemoglobin 15.1 g/dl (12.0-16.0); Mean Corpuscular Hemoglobin 30.1 pg (25.0-34.0); Platelet Count 341 K/uL (130-400); RDW Coefficient of Variation 12.1 % (11.5-14.5); Red Blood Count 5.01 M/uL (4.20-5.40); White Blood Count 20.25 K/ul (4.8-10.8)
[2022-05-03 22:08] LABS: Basophils # (auto) 0.06 K/uL (0-0.2); Basophils % (auto) 0.3 %; Immature Granulocytes % (auto) 0.5 %; Lymphocytes # (auto) 0.97 K/uL (1.2-3.4); Lymphocytes % (auto) 4.8 %; Monocytes % (auto) 1.5 %; Neutrophils # (auto) 18.82 K/uL (1.40-6.50); Neutrophils % (auto) 92.9 %; Polychromasia 1+
[2022-05-03 22:11] LABS: Alanine Aminotransferase 14 U/L (7-52); Albumin Globulin Ratio 1.5 (0.9-2); Albumin Level 4.6 gm/dl (3.4-5.0); Alkaline Phosphatase 72 U/L (34-104); Anion Gap 10 (3-11); BUN Creatinine Ratio 13.6 (10-20); Bilirubin,Total 0.8 mg/dl (0.2-1.0); Blood Urea Nitrogen 9 mg/dl (6-23); Calcium 9.4 mg/dl (8.6-10.3); Carbon Dioxide 23 mmol/L (21-32); Chloride 102 mmol/L (98-107); Est GFR (African American) 130.8 ml/min; Est GFR (Non-African American) 112.9 ml/min; Globulin 3.1 gm/dl (2.5-4.0); Glucose 180 mg/dl (70-99(Fasting)); Sodium 135 mmol/L (136-145); Total Protein 7.7 gm/dl (6.0-8.3)
[2022-05-03] MEDS ORDERED: diphenhydrAMINE 50 MG/ML VIAL IV STA (22:25)
[2022-05-03] MEDS ORDERED: METOCLOPRAMIDE HCL INJ 5 MG/ML 2 ML VIAL IV STA (22:25)
[2022-05-03 23:13] LABS: Potassium 3.4 mmol/L (3.5-5.1)
--- NOTE | 2022-05-03 23:30 | CT Scan Report ---
Exam(s): CT HEAD Without Contrast EXAM: CT Head Without Intravenous Contrast CLINICAL HISTORY: Reason for exam: BENAVIDES. TECHNIQUE: Axial computed tomography images of the head/brain without intravenous contrast. Automated exposure control was utilized for the study. A dose lowering technique was utilized adhering to the principles of ALARA. COMPARISON: August 29, 2021 FINDINGS: Brain: The cerebellar tonsils appear to extend inferiorly through the foramen magnum. This likely represents a Chiari I malformation; however, sagittal reconstructions were not provided. No acute intracranial hemorrhage, edema or abnormal mass-effect. Ventricles: Unremarkable. No ventriculomegaly. Bones/joints: Unremarkable. No acute fracture. Soft tissues: Unremarkable. Sinuses: Unremarkable as visualized. No acute sinusitis. Mastoid air cells: Unremarkable as visualized. No mastoid effusion. IMPRESSION: No acute intracranial findings. 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 Electronically signed by: Dorian Ron MD 05/03/22 23:30 PM
--- NOTE | 2022-05-03 23:42 | Emergency Department Note ---
History of Present Illness General Chief complaint: Flu Like Symptoms Stated complaint: VOMITTING,HEAD HURTS, Time Seen by Provider: 05/03/22 22:12 History of Present Illness Maximum Pain Intensity: 6 This 36-year-old female with history of migraines presents to the ER complaint of nausea vomiting and headache for the past few days. Patient denies chest pain, dyspnea, fevers, neck symptoms, flulike illness. Home Medications Medication Instructions Recorded Confirmed Type cetirizine 10 mg tablet 10 mg PO DAILY PRN allergy 06/09/21 05/04/22 Rx symptoms #30 tabs ferrous sulfate 325 mg (65 mg 325 mg PO DAILY #30 tabs 12/24/21 05/04/22 Rx iron) tablet Allergies Allergy/AdvReac Type Severity Reaction Status Date / Time No Known Allergies Allergy . Verified 12/22/21 09:12 Past Med/Surg History Medical History Chiari malformation Type 1 Chiari malformation per 02/2012 [facility] records scanned into [email or web address]. Paresthesias per 2010 office note, none reported at 2012 note and no surgery felt to be indicated per Dr. Redd. Recurrent radicular symptoms and headaches per 2014 PCP note with plan for repeat C-spine MRI. 2014 C-spine MRI: "low-lying cerebellar tonsils again raising the possibility of a Chiari malformation of the brain, considered similar to the prior study of 10/28/2010." Referred to PT by PCP per records Pt denies surgery or neuro evaluation since 2012 KIM (generalized anxiety disorder) following with PCP, upcoming evaluation with psychiatry to re-establish care, stable per pt Hypertension related Major depressive disorder, recurrent severe without psychotic features following with PCP, upcoming evaluation with psychiatry to re-establish care, stable per pt Migraine Polysubstance abuse "alcohol, cannabis, cocaine, amphetamines, synthetic cannabis", expressed "heroin or fentanyl" use day of 10/23/2020 ED visit-ED visit 2021 + opiates with relapse Smoker Chronic cough, denies change or worsening Surgical History History of section x2 Hx of induced 2020 [place] teeth extracted Family History Other Diabetes Hypertension Social History Smoking Status: Never smoker Tobacco Type: Cigarettes Cigarettes Per Day: 2-10 per day; Second Hand Exposure: No; Hx Alcohol Use: No Hx Substance Use: No Preferred Language: Slovak Communication Ability: Effective Wound/Ostomy Clinical Nurse Specialist Required: No Beliefs That Will Affect Care: None marital status: Single marital status details: Scott (33) Current Living Situation: Family Current Living Situation Comment: lives alone, current occupational status: employed current occupation: [employer] A[employer] @ assisted living Feels Safe at Home: Yes Assistive Devices: Contacts and Glasses Review of Systems A total of 10 systems reviewed and were otherwise negative Physical Exam Vital Signs Vital Signs - 24 hr 05/03/22 20:08 05/03/22 22:16 05/04/22 00:18 Temperature 36.7 C 37.3 C Temperature Source Temporal Artery Scan Oral Pulse Rate 77 54 L Pulse Rate [Right Finger] 54 L Pulse Rate from SpO2 Sensor Pulse Rhythm [Right Finger] Regular Pulse Strength [Right Finger] Normal Respiratory Rate 18 23 Respiratory Effort / Characteristics Non-Labored Spontaneous Respiratory Depth Normal Blood Pressure 137/90 Blood Pressure [Right Arm] 129/58 L Blood Pressure Mean 105 Blood Pressure Mean [Right Arm] 81 Blood Pressure Position Sitting Blood Pressure Position [Right Arm] Lying Pulse Oximetry 97 97 Oxygen Delivery Method Room Air Sepsis Recent Fever Within 48 Hours No Sepsis New/Unexplained Change in Mental Status N/A Sepsis Action Taken by Nursing No Action Required 05/03/22 22:17 05/03/22 22:20 05/03/22 22:30 Temperature Temperature Source Pulse Rate 53 L 43 L 83 Pulse Rate [Right Finger] Pulse Rate from SpO2 Sensor 59 L 51 L 84 Pulse Rhythm [Right Finger] Pulse Strength [Right Finger] Respiratory Rate 21 13 20 Respiratory Effort / Characteristics Respiratory Depth Blood Pressure Blood Pressure [Right Arm] Blood Pressure Mean Blood Pressure Mean [Right Arm] Blood Pressure Position Blood Pressure Position [Right Arm] Pulse Oximetry 97 97 98 Oxygen Delivery Method Sepsis Recent Fever Within 48 Hours Sepsis New/Unexplained Change in Mental Status Sepsis Action Taken by Nursing 05/03/22 22:40 05/03/22 22:50 05/04/22 00:15 Temperature Temperature Source Pulse Rate 49 L 58 L Pulse Rate [Right Finger] Pulse Rate from SpO2 Sensor 50 L Pulse Rhythm [Right Finger] Pulse Strength [Right Finger] Respiratory Rate 18 20 21 Respiratory Effort / Characteristics Respiratory Depth Blood Pressure Blood Pressure [Right Arm] Blood Pressure Mean Blood Pressure Mean [Right Arm] Blood Pressure Position Blood Pressure Position [Right Arm] Pulse Oximetry 100 Oxygen Delivery Method Sepsis Recent Fever Within 48 Hours Sepsis New/Unexplained Change in Mental Status Sepsis Action Taken by Nursing 05/04/22 00:16 05/04/22 00:16 05/04/22 00:20 Temperature Temperature Source Pulse Rate 48 L 64 Pulse Rate [Right Finger] Pulse Rate from SpO2 Sensor 48 L 68 Pulse Rhythm [Right Finger] Pulse Strength [Right Finger] Respiratory Rate 19 26 H Respiratory Effort / Characteristics Respiratory Depth Blood Pressure 129/58 L Blood Pressure [Right Arm] Blood Pressure Mean 81 Blood Pressure Mean [Right Arm] Blood Pressure Position Blood Pressure Position [Right Arm] Pulse Oximetry 98 97 Oxygen Delivery Method Sepsis Recent Fever Within 48 Hours Sepsis New/Unexplained Change in Mental Status Sepsis Action Taken by Nursing 05/04/22 00:30 05/04/22 00:40 05/04/22 00:50 Temperature Temperature Source Pulse Rate 105 H 62 71 Pulse Rate [Right Finger] Pulse Rate from SpO2 Sensor 101 H 64 73 Pulse Rhythm [Right Finger] Pulse Strength [Right Finger] Respiratory Rate 19 19 18 Respiratory Effort / Characteristics Respiratory Depth Blood Pressure Blood Pressure [Right Arm] Blood Pressure Mean Blood Pressure Mean [Right Arm] Blood Pressure Position Blood Pressure Position [Right Arm] Pulse Oximetry 97 97 98 Oxygen Delivery Method Sepsis Recent Fever Within 48 Hours Sepsis New/Unexplained Change in Mental Status Sepsis Action Taken by Nursing 05/04/22 01:00 05/04/22 01:10 05/04/22 01:20 Temperature Temperature Source Pulse Rate 62 49 L 53 L Pulse Rate [Right Finger] Pulse Rate from SpO2 Sensor 67 45 L 50 L Pulse Rhythm [Right Finger] Pulse Strength [Right Finger] Respiratory Rate 24 23 20 Respiratory Effort / Characteristics Respiratory Depth Blood Pressure Blood Pressure [Right Arm] Blood Pressure Mean Blood Pressure Mean [Right Arm] Blood Pressure Position Blood Pressure Position [Right Arm] Pulse Oximetry 97 95 96 Oxygen Delivery Method Sepsis Recent Fever Within 48 Hours Sepsis New/Unexplained Change in Mental Status Sepsis Action Taken by Nursing 05/04/22 01:30 05/04/22 01:40 05/04/22 01:50 Temperature Temperature Source Pulse Rate 52 L 52 L 49 L Pulse Rate [Right Finger] Pulse Rate from SpO2 Sensor 50 L 54 L 52 L Pulse Rhythm [Right Finger] Pulse Strength [Right Finger] Respiratory Rate 22 18 24 Respiratory Effort / Characteristics Respiratory Depth Blood Pressure Blood Pressure [Right Arm] Blood Pressure Mean Blood Pressure Mean [Right Arm] Blood Pressure Position Blood Pressure Position [Right Arm] Pulse Oximetry 96 97 97 Oxygen Delivery Method Sepsis Recent Fever Within 48 Hours Sepsis New/Unexplained Change in Mental Status Sepsis Action Taken by Nursing 05/04/22 02:18 Temperature Temperature Source Pulse Rate 52 L Pulse Rate [Right Finger] Pulse Rate from SpO2 Sensor Pulse Rhythm [Right Finger] Pulse Strength [Right Finger] Respiratory Rate Respiratory Effort / Characteristics Respiratory Depth Blood Pressure Blood Pressure [Right Arm] Blood Pressure Mean Blood Pressure Mean [Right Arm] Blood Pressure Position Blood Pressure Position [Right Arm] Pulse Oximetry Oxygen Delivery Method Sepsis Recent Fever Within 48 Hours Sepsis New/Unexplained Change in Mental Status Sepsis Action Taken by Nursing VITALS: Vitals are noted on the nurse's note and reviewed by myself. Vital signs stable. GENERAL: Pleasant female with family present, in no acute distress, nondia phoretic, well-developed well-nourished. SKIN: The skin was without rashes, erythema, edema, or bruising. There is no tenting of the skin. Capillary reflex less than 2 seconds. HEAD: Normocephalic atraumatic. EARS: External auditory canals clear, tympanic membranes pearly prajapati without erythema or effusion bilaterally. EYES: Pupils equal round and reactive to light and accommodation. Conjunctivae without injection, sclerae without icterus. Extraocular movements intact. NOSE: Patent, turbinates without inflammation or discharge. No sinus tenderness. MOUTH: Mucous membranes moist. Pharynx without erythema or exudate. Uvula midline. Airway patent. Tongue does not deviate. NECK: Supple without nuchal rigidity. No lymphadenopathy. No thyromegaly. Cervical spine is nontender. No JVD. HEART: Regular rate and rhythm LUNGS: Clear to auscultation bilaterally without wheezes, rales or rhonchi. No retractions or accessory muscle use. ABDOMEN: Positive bowel sounds x 4. Normal tympanic percussion. Soft, nontender, without masses or organomegaly. Sharpe sign negative. No guarding or rebound tenderness. No CVA tenderness MUSCULOSKELETAL: No muscle atrophy, erythema, or edema noted. NEURO: Patient was alert and oriented to person place and time. Normal sensation to light and sharp touch. No focal neurological deficits. Course Administered Medications Discontinued Medications Diphenhydramine HCl (Diphenhydramine 50 Mg/Ml Vial) 25 mg IV NOW STA Stop: 05/03/22 22:26 Last Admin: 05/03/22 22:35 Dose: 25 mg Documented By: ALEXANDER Sodium Chloride (Nss 1000ml) 1,000 mls @ 999 mls/hr IV .Q1H1M ONE Stop: 05/03/22 21:44 Last Infusion: 05/03/22 22:14 Dose: 0 mls/hr Documented By: Admin: 05/03/22 20:47 Dose: 999 mls/hr Documented By: HERBERT Sodium Chloride (Nss 1000ml) 1,000 mls @ 999 mls/hr IV .Q1H1M ONE Stop: 05/03/22 23:25 Last Infusion: 05/04/22 00:02 Dose: 0 mls/hr Documented By: Admin: 05/03/22 22:35 Dose: 999 mls/hr Documented By: ALEXANDER Acetaminophen (Ofirmev) 1,000 mg in 100 mls @ 400 mls/hr IV NOW STA Stop: 05/04/22 01:07 Last Infusion: 05/04/22 01:25 Dose: 0 mls/hr Documented By: Admin: 05/04/22 01:09 Dose: 400 mls/hr Documented By: CHANDAN Magnesium Sulfate/Dextrose (Magnesium Sulfate / D5w) 1 gm in 100 mls @ 100 mls/hr IV NOW STA Stop: 05/04/22 01:52 Last Infusion: 05/04/22 02:36 Dose: 0 mls/hr Documented By: Admin: 05/04/22 01:26 Dose: 100 mls/hr Documented By: CHANDAN Metoclopramide HCl (Metoclopramide Hcl Inj 5 Mg/Ml 2 Ml Vial) 10 mg IV NOW STA Stop: 05/03/22 22:26 Last Admin: 05/03/22 22:36 Dose: 10 mg Documented By: ALEXANDER Ondansetron HCl (Ondansetron Inj 2 Mg/Ml 2 Ml Vial) 4 mg IV NOW STA Stop: 05/04/22 00:54 Last Admin: 05/04/22 01:07 Dose: 4 mg Documented By: CHANDAN Medical Decision Making Medical Records Attestation: I reviewed the patient's medical records. Home Medications Current Medication List: was personally reviewed by me Laboratory Data Attestation: I reviewed the patient's lab results. 05/03/22 20:50 05/03/22 22:18 Lab Results 05/03/22 05/03/22 05/03/22 Range/Units 20:50 20:50 22:18 WBC 20.25 H (4.8-10.8) K/ul RBC 5.01 (4.20-5.40) M/uL Hgb 15.1 (12.0-16.0) g/dl Hct 43.1 (37.0-47.0) % MCV 86.0 (80.0-100.0) fL MCH 30.1 (25.0-34.0) pg MCHC 35.0 (32.0-36.0) g/dL RDW Std Deviation 38.0 (36.4-46.3) fL RDW Coeff of Maninder 12.1 (11.5-14.5) % Plt Count 341 (130-400) K/uL MPV 11.0 (9.4-12.4) fL Immature Gran % (Auto) 0.5 % Neut % (Auto) 92.9 % Lymph % (Auto) 4.8 % Ballard % (Auto) 1.5 % Eos % (Auto) 0.0 % Baso % (Auto) 0.3 % Neut # (Auto) 18.82 H (1.40-6.50) K/uL Lymph # (Auto) 0.97 L (1.2-3.4) K/uL Ballard # (Auto) 0.30 (0.11-0.59) K/uL Eos # (Auto) 0.00 (0-0.50) K/uL Baso # (Auto) 0.06 (0-0.2) K/uL Immature Gran # (Auto) 0.10 (0.01-0.20) K/uL RBC Morphology Polychromasia 1+ Sodium 135 L (136-145) mmol/L Potassium TNP 3.4 L Chloride 102 (98-107) mmol/L Carbon Dioxide 23 (21-32) mmol/L Anion Gap 10 (3-11) BUN 9 (6-23) mg/dl Creatinine 0.66 (0.6-1.2) mg/dl Est Cr Clr Drug Dosing 137.0 ml/min Est GFR ( Amer) 130.8 ml/min Est GFR (Non-Af Amer) 112.9 ml/min BUN/Creatinine Ratio 13.6 (10-20) Glucose 180 H (70-99(Fasting)) mg/dl Calcium 9.4 (8.6-10.3) mg/dl Total Bilirubin 0.8 (0.2-1.0) mg/dl AST TNP 12 L ALT 14 (7-52) U/L Alkaline Phosphatase 72 (34-104) U/L Total Protein 7.7 (6.0-8.3) gm/dl Albumin 4.6 (3.4-5.0) gm/dl Globulin 3.1 (2.5-4.0) gm/dl Albumin/Globulin Ratio 1.5 (0.9-2) Urine Color Urine Appearance (Clear) Urine pH (4.5-7.5) Ur Specific [place] (1.000-1.030) Urine Protein (Negative) Urine Glucose (UA) (Negative) Urine Ketones (Negative) Urine Blood (Negative) Urine Nitrite (Negative) Urine Bilirubin (Negative) Urine Urobilinogen (Negative) Ur Leukocyte Esterase (Negative) POC Ur Test (NEG) SARS-CoV-2 (PCR) (Negative) Influenza Type A (PCR) (Neg) Influenza Type B (PCR) (Neg) RSV (RT-PCR) (Neg) 05/04/22 05/04/22 05/04/22 Range/Units 00:11 00:17 Unknown WBC 20.45 H (4.8-10.8) K/ul RBC 4.48 (4.20-5.40) M/uL Hgb 13.6 (12.0-16.0) g/dl Hct 38.5 (37.0-47.0) % MCV 85.9 (80.0-100.0) fL MCH 30.4 (25.0-34.0) pg MCHC 35.3 (32.0-36.0) g/dL RDW Std Deviation 38.2 (36.4-46.3) fL RDW Coeff of Maninder 12.2 (11.5-14.5) % Plt Count 305 (130-400) K/uL MPV 10.8 (9.4-12.4) fL Immature Gran % (Auto) 0.5 % Neut % (Auto) 92.8 % Lymph % (Auto) 4.6 % Ball[place] % (Auto) 1.8 % Eos % (Auto) 0.0 % Baso % (Auto) 0.3 % Neut # (Auto) 18.97 H (1.40-6.50) K/uL Lymph # (Auto) 0.94 L (1.2-3.4) K/uL [place] # (Auto) 0.36 (0.11-0.59) K/uL Eos # (Auto) 0.01 (0-0.50) K/uL Baso # (Auto) 0.07 (0-0.2) K/uL Immature Gran # (Auto) 0.10 (0.01-0.20) K/uL RBC Morphology Unremarkable Polychromasia Sodium (136-145) mmol/L Potassium Chloride (98-107) mmol/L Carbon Dioxide (21-32) mmol/L Anion Gap (3-11) BUN (6-23) mg/dl Creatinine (0.6-1.2) mg/dl Est Cr Clr Drug Dosing ml/min Est GFR ( Amer) ml/min Est GFR (Non-Af Amer) ml/min BUN/Creatinine Ratio (10-20) Glucose (70-99(Fasting)) mg/dl Calcium (8.6-10.3) mg/dl Total Bilirubin (0.2-1.0) mg/dl AST ALT (7-52) U/L Alkaline Phosphatase (34-104) U/L Total Protein (6.0-8.3) gm/dl Albumin (3.4-5.0) gm/dl Globulin (2.5-4.0) gm/dl Albumin/Globulin Ratio (0.9-2) Urine Color Urine Appearance (Clear) Urine pH (4.5-7.5) Ur Specific [place] (1.000-1.030) Urine Protein (Negative) Urine Glucose (UA) (Negative) Urine Ketones (Negative) Urine Blood (Negative) Urine Nitrite (Negative) Urine Bilirubin (Negative) Urine Urobilinogen (Negative) Ur Leukocyte Esterase (Negative) POC Ur Test NEG (NEG) SARS-CoV-2 (PCR) NEGATIVE (Negative) Influenza Type A (PCR) Negative (Neg) Influenza Type B (PCR) Negative (Neg) RSV (RT-PCR) Negative (Neg) 05/04/22 Range/Units Unknown WBC (4.8-10.8) K/ul RBC (4.20-5.40) M/uL Hgb (12.0-16.0) g/dl Hct (37.0-47.0) % MCV (80.0-100.0) fL MCH (25.0-34.0) pg MCHC (32.0-36.0) g/dL RDW Std Deviation (36.4-46.3) fL RDW Coeff of Maninder (11.5-14.5) % Plt Count (130-400) K/uL MPV (9.4-12.4) fL Immature Gran % (Auto) % Neut % (Auto) % Lymph % (Auto) % Ball[place] % (Auto) % Eos % (Auto) % Baso % (Auto) % Neut # (Auto) (1.40-6.50) K/uL Lymph # (Auto) (1.2-3.4) K/uL [place] # (Auto) (0.11-0.59) K/uL Eos # (Auto) (0-0.50) K/uL Baso # (Auto) (0-0.2) K/uL Immature Gran # (Auto) (0.01-0.20) K/uL RBC Morphology Polychromasia Sodium (136-145) mmol/L Potassium Chloride (98-107) mmol/L Carbon Dioxide (21-32) mmol/L Anion Gap (3-11) BUN (6-23) mg/dl Creatinine (0.6-1.2) mg/dl Est Cr Clr Drug Dosing ml/min Est GFR ( Amer) ml/min Est GFR (Non-Af Amer) ml/min BUN/Creatinine Ratio (10-20) Glucose (70-99(Fasting)) mg/dl Calcium (8.6-10.3) mg/dl Total Bilirubin (0.2-1.0) mg/dl AST ALT (7-52) U/L Alkaline Phosphatase (34-104) U/L Total Protein (6.0-8.3) gm/dl Albumin (3.4-5.0) gm/dl Globulin (2.5-4.0) gm/dl Albumin/Globulin Ratio (0.9-2) Urine Color Yellow Urine Appearance Clear (Clear) Urine pH 6.0 (4.5-7.5) Ur Specific [place] 1.025 (1.000-1.030) Urine Protein Negative (Negative) Urine Glucose (UA) 2+ H (Negative) Urine Ketones 3+ H (Negative) Urine Blood Negative (Negative) Urine Nitrite Negative (Negative) Urine Bilirubin Negative (Negative) Urine Urobilinogen Negative (Negative) Ur Leukocyte Esterase Negative (Negative) POC Ur Test (NEG) SARS-CoV-2 (PCR) (Negative) Influenza Type A (PCR) (Neg) Influenza Type B (PCR) (Neg) RSV (RT-PCR) (Neg) Imaging Data Attestation: I personally reviewed and interpreted this imaging study as follows: Radiologist's Impression: Head CT 05/03/22 22:25 Exam(s): CT HEAD Without Contrast EXAM: CT Head Without Intravenous Contrast CLINICAL HISTORY: Reason for exam: BENAVIDES. TECHNIQUE: Axial computed tomography images of the head/brain without intravenous contrast. Automated exposure control was utilized for the study. A dose lowering technique was utilized adhering to the principles of ALARA. COMPARISON: August 29, 2021 FINDINGS: Brain: The cerebellar tonsils appear to extend inferiorly through the foramen magnum. This likely represents a Chiari I malformation; however, sagittal reconstructions were not provided. No acute intracranial hemorrhage, edema or abnormal mass-effect. Ventricles: Unremarkable. No ventriculomegaly. Bones/joints: Unremarkable. No acute fracture. Soft tissues: Unremarkable. Sinuses: Unremarkable as visualized. No acute sinusitis. Mastoid air cells: Unremarkable as visualized. No mastoid effusion. IMPRESSION: No acute intracranial findings. 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 Electronically signed by: Dorian Ron MD 05/03/22 23:30 PM [facility] Narrative Prior records/ancillary studies reviewed. Additional history obtained from family. Triage Nursing notes reviewed. The patient's history was concerning for headache. Differential diagnosis: Etiologies such as migraine headache, meningitis, sinusitis, CO exposure, ICH, SAH, infection, tumor, headache, sinus thrombosis, arterial dissection, as well as others were entertained. Physical examination findings: As above. Non-focal. ER treatment provided: Reglan, IV fluids, Benadryl, magnesium, Tylenol, Zofran On reassessment the patient felt better. Diagnostics interpreted by me: The labs Independently Interpreted by myself revealed leukocytosis, most likely marginalization from vomiting Mild hyperglycemia without DKA Imaging studies: Head CT negative for bleed per my independent interpretation Consultation: A consultation was placed with the hospitalist. The case was discussed and diagnostics were reviewed. The patient was evaluated in the ER for further treatment. This appears to be consistent with migraine. Patient was given multiple rounds of medication. She still was complaining of a bad headache. Imaging was negative. Labs and diagnostics were independently interpreted by myself. Radiology read the CAT scan. Medicine was consulted and the case was discussed. She will be evaluated by the hospitalist team for possible admission. By the evaluation outlined above emergent etiologies such as meningitis, sinusitis, CO exposure, ICH, SAH, infection, temporal arteritis, tumor, sinus thrombosis, arterial dissection, as well as others were deemed relatively unlikely. The pt informed about the findings as listed above. All questions were answered and pleased with the treatment. The chart was completed utilizing [employer] Speech voice recognition software. Grammatical errors, random word insertions, pronoun errors, and incomplete sentences are an occassional consequence of this system due to software limitations, ambient noise, and hardware issues. Any formal questions or concerns about the content, text, or information contained within the body of this dictation should be directly addressed to the physician circulation assistant for clarification. Impression & Plan Migraine, Leukocytosis, Nausea & vomiting, Acute dehydration Discharge Plan Visit Data Chief Complaint: Flu Like Symptoms Stated Complaint: VOMITTING,HEAD HURTS, ED Provider: Stacy Dietrich ED Midlevel Provider: Sugar Frank Discharge Problem: Migraine, Leukocytosis, Nausea & vomiting, Acute dehydration Patient Disposition: Being Evaluated by Hospitalist Condition: Good Forms Stand Alone Forms: My [facility]ohilove Prescriptions Prescriptions: No Action ferrous sulfate 325 mg (65 mg iron) tablet 325 mg PO DAILY Qty: 30 2RF cetirizine 10 mg tablet 10 mg PO DAILY PRN (Reason: allergy symptoms) Qty: 30 5RF Referrals Referrals: Zachery Key DO [Primary Care Provider] - Migraine Qualifiers: Migraine type: unspecified Status migrainosus presence: without status migrainosus Intractability: intractable Qualified Code(s): G43.919 - Migraine, unspecified, intractable, without status migrainosus
[2022-05-04 00:37] LABS: Hematocrit (blood only) 38.5 % (37.0-47.0); Hemoglobin 13.6 g/dl (12.0-16.0); Mean Corpuscular Hemoglobin 30.4 pg (25.0-34.0); Mean Corpuscular Hgb Conc 35.3 g/dL (32.0-36.0); Mean Corpuscular Volume 85.9 fL (80.0-100.0); Mean Platelet Volume 10.8 fL (9.4-12.4); Platelet Count 305 K/uL (130-400); RDW Coefficient of Variation 12.2 % (11.5-14.5); RDW Standard Deviation 38.2 fL (36.4-46.3); Red Blood Count 4.48 M/uL (4.20-5.40); White Blood Count 20.45 K/ul (4.8-10.8)
[2022-05-04] MEDS ORDERED: ACETAMINOPHEN 1,000 MG/100 ML VIAL IV STA (00:53)
[2022-05-04] MEDS ORDERED: MAGNESIUM SULFATE / D5W 1 GM/100 ML BAG IV STA (00:53)
[2022-05-04] MEDS ORDERED: ONDANSETRON INJ 2 MG/ML 2 ML VIAL IV STA (00:53)
[2022-05-04 01:08] LABS: Basophils # (auto) 0.07 K/uL (0-0.2); Basophils % (auto) 0.3 %; Eosinophils # (auto) 0.01 K/uL (0-0.50); Immature Granulocytes % (auto) 0.5 %; Lymphocytes # (auto) 0.94 K/uL (1.2-3.4); Lymphocytes % (auto) 4.6 %; Monocytes # (auto) 0.36 K/uL (0.11-0.59); Monocytes % (auto) 1.8 %; Neutrophils # (auto) 18.97 K/uL (1.40-6.50); Neutrophils % (auto) 92.8 %; RBC Morphology Unremarkable
[2022-05-04 01:14] LABS: Influenza A virus by PCR Negative (Neg); Influenza B virus by PCR Negative (Neg); RSV by PCR Negative (Neg); SARS CoV2 RNA(COVID-19) Ceph NEGATIVE (Negative)
[2022-05-04 01:26] LABS: Appearance Urine Clear (Clear); Bilirubin Urine Negative (Negative); Blood Urine Negative (Negative); Color Urine Yellow; Glucose Urine UA 2+ (Negative); Ketones Urine 3+ (Negative); Leukocyte Esterase Urine Negative (Negative); Nitrite Urine Negative (Negative); Protein Urine Negative (Negative); Specific Gravity Urine 1.025 (1.000-1.030); Urobilinogen Urine Negative (Negative)
[2022-05-04] MEDS ORDERED: dexAMETHasone**PF** 10 MG/ML VIAL IV ONE (03:34)
--- NOTE | 2022-05-04 03:49 | History & Physical Report ---
Date of Service May 04, 2022 Assessment & Plan (1) Intractable headache: (2) Nausea & vomiting: (3) Chiari malformation: (4) Syncope: (5) Tobacco abuse: (6) Polysubstance abuse: (7) Migraine: Plan Intractable headaches with nausea and vomiting/history of migraines/Chiari malfo rmation- No significant improvement with normal saline 2 L, Benadryl 25 mg IV, Reglan 10 mg IV, Tylenol 1 g IV, Zofran 4 mg IV and magnesium sulfate 1 g IV from the ED Have asked the ED to give dexamethasone 10 mg IV, and will continue 4 mg IV every [address] head without acute findings She has a pending appointment with neurosurgery in [place] in June Suspect her symptomatology secondary to Chiari malformation Would not pursue additional imaging at this time, unless delayed improvement symptoms, as she has had imaging in the outpatient setting and is anticipated again in June Dehydration- Secondary to vomiting Received 2 L normal saline in ED We will give additional 1 L of normal saline at 80 mils per hour Iron deficiency- Continue start ferrous sulfate Allergy symptoms- Continue cetirizine/loratadine 10 mg daily as needed History of Present Illness Chief Complaint: The patient presents to the emergency department with a few days of intractable headaches, worsening usual migraines, accompanied by nausea and vomiting Primary Care Provider: Zachery Key DO The patient is a 36-year-old female with a past medical history including iron deficiency, pathologic ICD, Chiari malformation, syncope, wrist synovitis, seasonal allergies, tobacco abuse and polysubstance abuse. She has had episodes of headaches with nausea vomiting past, but this has been more severe for his duration and intensity. She reports that she has a pending appointment with neurosurgery in [place] sometime in June, to address possible issues with Chiari malformation. Allergies Allergy/AdvReac Type Severity Reaction Status Date / Time No Known Allergies Allergy . Verified 12/22/21 09:12 Home Medications Medication Instructions Recorded Confirmed Type cetirizine 10 mg tablet 10 mg PO DAILY PRN allergy 06/09/21 05/04/22 Rx symptoms #30 tabs ferrous sulfate 325 mg (65 mg 325 mg PO DAILY #30 tabs 12/24/21 05/04/22 Rx iron) tablet Past Med/Surg History Medical History Chiari malformation Type 1 Chiari malformation per 02/2012 [facility] [place] records scanned into [employer] [facility]. Paresthesias per 2011 office note, none reported at 2013 note and no surgery felt to be indicated per Dr. Redd. Recurrent radicular symptoms and headaches per 2013 PCP note with plan for repeat C-spine MRI. 2014 C-spine MRI: "low-lying cerebellar tonsils again raising the possibility of a Chiari malformation of the brain, considered similar to the prior study of 10/28/2010." Referred to PT by PCP per records Pt denies surgery or neuro evaluation since 2012 KIM (generalized anxiety disorder) following with PCP, upcoming evaluation with psychiatry to re-establish care, stable per pt Hypertension related Major depressive disorder, recurrent severe without psychotic features following with PCP, upcoming evaluation with psychiatry to re-establish care, stable per pt Migraine Polysubstance abuse "alcohol, cannabis, cocaine, amphetamines, synthetic cannabis", expressed "heroin or fentanyl" use day of 10/23/2020 ED visit-ED visit 2021 + opiates with relapse Smoker Chronic cough, denies change or worsening Surgical History History of section x2 Hx of induced 2020 [place] teeth extracted Family History Other Diabetes Hypertension Social History Smoking Status: Never smoker Tobacco Type: Cigarettes Cigarettes Per Day: 2-10 per day; Second Hand Exposure: No; Hx Alcohol Use: No Hx Substance Use: No Preferred Language: Welsh Communication Ability: Effective Oncology Social Worker Required: No Beliefs That Will Affect Care: None marital status: Single marital status details: Scott (33) Current Living Situation: Family Current Living Situation Comment: lives alone, current occupational status: employed 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 The review of systems is otherwise negative other than for that already noted above, and at least 10 systems have been reviewed. Physical Exam Physical Exam: The patient is awake, alert and oriented 3, well developed and well nourished, normocephalic and atraumatic, lying in bed and in no acute distress. HEENT--PERRL, EOMI, mucous membranes and oropharynx dry. Neck--supple. No JVD. No bruits. Thyroid normal, trachea midline, no adenopathy. Heart--normal S1 and S2. No murmurs, rubs or gallops. Lungs--clear bilaterally, no respiratory distress, no accessory muscle use. Abdomen--normal bowel sounds and soft. Nontender. Nondistended, no hernias or masses, no organomegaly. Extremities--no cyanosis or clubbing. No edema. Dermatologic--normal skin turgor, normal color, no abnormal lymph nodes, no rash. Neurologic--cranial nerves II through XII grossly intact. Rheumatologic--normal range of motion. Psychiatric--normal affect. Results & Data Results & Data Vital Signs (Past 12 Hours) Vital Signs Temp Pulse Pulse Resp BP BP Pulse Ox 05/04/22 03:00 51 L 17 155/87 H 97 05/04/22 02:18 52 L 05/04/22 01:50 49 L 24 97 05/04/22 01:40 52 L 18 97 05/04/22 01:30 52 L 22 96 05/04/22 01:20 53 L 20 96 05/04/22 01:10 49 L 23 95 05/04/22 01:00 62 24 97 05/04/22 00:50 71 18 98 05/04/22 00:40 62 19 97 05/04/22 00:30 105 H 19 97 05/04/22 00:20 64 26 H 97 05/04/22 00:16 48 L 19 98 05/04/22 00:16 129/58 L 05/04/22 00:15 21 05/03/22 22:50 58 L 20 05/03/22 22:40 49 L 18 100 05/03/22 22:30 83 20 98 05/03/22 22:20 43 L 13 97 05/03/22 22:17 53 L 21 97 05/04/22 00:18 37.3 C 54 L 23 129/58 L 97 05/03/22 22:16 54 L 05/03/22 20:08 36.7 C 77 18 137/90 97 O2 Del Method 05/04/22 03:00 Room Air 05/04/22 02:18 05/04/22 01:50 05/04/22 01:40 05/04/22 01:30 05/04/22 01:20 05/04/22 01:10 05/04/22 01:00 05/04/22 00:50 05/04/22 00:40 05/04/22 00:30 05/04/22 00:20 05/04/22 00:16 05/04/22 00:16 05/04/22 00:15 05/03/22 22:50 05/03/22 22:40 05/03/22 22:30 05/03/22 22:20 05/03/22 22:17 05/04/22 00:18 Room Air 05/03/22 22:16 05/03/22 20:08 Laboratory Results Laboratory Results WBC 20.45 K/ul (4.8-10.8) H 05/04/22 00:11 RBC 4.48 M/uL (4.20-5.40) 05/04/22 00:11 Hgb 13.6 g/dl (12.0-16.0) 05/04/22 00:11 Hct 38.5 % (37.0-47.0) 05/04/22 00:11 MCV 85.9 fL (80.0-100.0) 05/04/22 00:11 MCH 30.4 pg (25.0-34.0) 05/04/22 00:11 MCHC 35.3 g/dL (32.0-36.0) 05/04/22 00:11 RDW Std Deviation 38.2 fL (36.4-46.3) 05/04/22 00:11 RDW Coeff of Maninder 12.2 % (11.5-14.5) 05/04/22 00:11 Plt Count 305 K/uL (130-400) 05/04/22 00:11 MPV 10.8 fL (9.4-12.4) 05/04/22 00:11 Immature Gran % (Auto) 0.5 % 05/04/22 00:11 Neut % (Auto) 92.8 % 05/04/22 00:11 Lymph % (Auto) 4.6 % 05/04/22 00:11 Payne % (Auto) 1.8 % 05/04/22 00:11 Eos % (Auto) 0.0 % 05/04/22 00:11 Baso % (Auto) 0.3 % 05/04/22 00:11 Neut # (Auto) 18.97 K/uL (1.40-6.50) H 05/04/22 00:11 Lymph # (Auto) 0.94 K/uL (1.2-3.4) L 05/04/22 00:11 Payne # (Auto) 0.36 K/uL (0.11-0.59) 05/04/22 00:11 Eos # (Auto) 0.01 K/uL (0-0.50) 05/04/22 00:11 Baso # (Auto) 0.07 K/uL (0-0.2) 05/04/22 00:11 Immature Gran # (Auto) 0.10 K/uL (0.01-0.20) 05/04/22 00:11 RBC Morphology Unremarkable 05/04/22 00:11 Polychromasia 1+ 05/03/22 20:50 Sodium 135 mmol/L (136-145) L 05/03/22 20:50 Potassium 3.4 mmol/L (3.5-5.1) L 05/03/22 22:18 Chloride 102 mmol/L (98-107) 05/03/22 20:50 Carbon Dioxide 23 mmol/L (21-32) 05/03/22 20:50 Anion Gap 10 (3-11) 05/03/22 20:50 BUN 9 mg/dl (6-23) 05/03/22 20:50 Creatinine 0.66 mg/dl (0.6-1.2) 05/03/22 20:50 Est Cr Clr Drug Dosing 137.0 ml/min 05/03/22 20:50 Est GFR ( Amer) 130.8 ml/min 05/03/22 20:50 Est GFR (Non-Af Amer) 112.9 ml/min 05/03/22 20:50 BUN/Creatinine Ratio 13.6 (10-20) 05/03/22 20:50 Glucose 180 mg/dl (70-99(Fasting)) H 05/03/22 20:50 Calcium 9.4 mg/dl (8.6-10.3) 05/03/22 20:50 Total Bilirubin 0.8 mg/dl (0.2-1.0) 05/03/22 20:50 AST 12 U/L (13-39) L 05/03/22 22:18 ALT 14 U/L (7-52) 05/03/22 20:50 Alkaline Phosphatase 72 U/L (34-104) 05/03/22 20:50 Total Protein 7.7 gm/dl (6.0-8.3) 05/03/22 20:50 Albumin 4.6 gm/dl (3.4-5.0) 05/03/22 20:50 Globulin 3.1 gm/dl (2.5-4.0) 05/03/22 20:50 Albumin/Globulin Ratio 1.5 (0.9-2) 05/03/22 20:50 Urine Color Yellow 05/04/22 Unknown Urine Appearance Clear (Clear) 05/04/22 Unknown Urine pH 6.0 (4.5-7.5) 05/04/22 Unknown Ur Specific Moore 1.025 (1.000-1.030) 05/04/22 Unknown Urine Protein Negative (Negative) 05/04/22 Unknown Urine Glucose (UA) 2+ (Negative) H 05/04/22 Unknown Urine Ketones 3+ (Negative) H 05/04/22 Unknown Urine Blood Negative (Negative) 05/04/22 Unknown Urine Nitrite Negative (Negative) 05/04/22 Unknown Urine Bilirubin Negative (Negative) 05/04/22 Unknown Urine Urobilinogen Negative (Negative) 05/04/22 Unknown Ur Leukocyte Esterase Negative (Negative) 05/04/22 Unknown POC Ur Test NEG (NEG) 05/04/22 Unknown SARS-CoV-2 (PCR) NEGATIVE (Negative) 05/04/22 00:17 Influenza Type A (PCR) Negative (Neg) 05/04/22 00:17 Influenza Type B (PCR) Negative (Neg) 05/04/22 00:17 RSV (RT-PCR) Negative (Neg) 05/04/22 00:[address] 05/03/22 22:25 Exam(s): CT HEAD Without Contrast EXAM: CT Head Without Intravenous Contrast CLINICAL HISTORY: Reason for exam: BENAVIDES. TECHNIQUE: Axial computed tomography images of the head/brain without intravenous contrast. Automated exposure control was utilized for the study. A dose lowering technique was utilized adhering to the principles of ALARA. COMPARISON: August 29, 2021 FINDINGS: Brain: The cerebellar tonsils appear to extend inferiorly through the foramen magnum. This likely represents a Chiari I malformation; however, sagittal reconstructions were not provided. No acute intracranial hemorrhage, edema or abnormal mass-effect. Ventricles: Unremarkable. No ventriculomegaly. Bones/joints: Unremarkable. No acute fracture. Soft tissues: Unremarkable. Sinuses: Unremarkable as visualized. No acute sinusitis. Mastoid air cells: Unremarkable as visualized. No mastoid effusion. IMPRESSION: No acute intracranial findings. 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 Electronically signed by: Dorian Ron MD 05/03/22 23:30 PM Code Status & VTE Plan Code Status Full code VTE Prophylaxis Plan VTE Prophylaxis will be ordered: Yes PG Care Time/CCT Total # of Minutes Spent Total Time Spent with Patient: Total time spent is greater than 50% in coordination of care (as documented) at patient's floor/unit and/or counseling patient: Coding Level of Care Code 76690 INT INP/OBS CARE 3/75MIN Diagnoses Intractable headache R51.9 Nausea & vomiting R11.2 Chiari malformation Syncope R55 Tobacco abuse Z72.0 Polysubstance abuse F19.10 Migraine G43.919 Intractability: intractable Migraine type: unspecified Status migrainosus presence: without status migrainosus (7) Migraine Intractability: intractable Migraine type: unspecified Status migrainosus presence: without status migrainosus Qualified Code(s): G43.919 - Migraine, unspecified, intractable, without status migrainosus
[2022-05-04] MEDS ORDERED: CETIRIZINE HCL 10 MG TABLET PO PRN (04:20)
[2022-05-04] MEDS ORDERED: ONDANSETRON INJ 2 MG/ML 2 ML VIAL IV PRN (04:20)
[2022-05-04] MEDS ORDERED: ACETAMINOPHEN 1000 MG/100 ML IV IV PRN (04:20)
[2022-05-04] MEDS: FERROUS SULFATE 325 MG TAB PO SCH (08:29)
[2022-05-04] MEDS: dexAMETHasone 4 MG in SYRINGE 0 ML IV SCH ×2 (11:07→22:31)
[2022-05-04] MEDS: SODIUM CHLORIDE 0.9% 500 ML IV SCH (17:15)
--- NOTE | 2022-05-04 19:09 | Hospitalist Progress Note ---
Date of Service May 04, 2022 Assessment & Plan (1) Intractable headache: Plan: S/P Dexamethasone 10 mg IV, and will continue 4 mg IV every [address] head without acute findings She has a pending appointment with neurosurgery in [place] in June Suspect her symptomatology secondary to Chiari malformation Would not pursue additional imaging at this time, unless delayed improvement symptoms, as she has had imaging in the outpatient setting and is anticipated again in June (2) Nausea & vomiting: Plan: Zofran as needed (3) Chiari malformation: Plan: chronic Has appt in [place] in June Admission and Anticipated Discharge Date Admission Date: May 04, 2022 Subjective Patient was admitted early this AM. She is still in the ER awaiting a bed on the floor. She was admitted with intractable headache with associated nausea and vomiting, felt to be secondary to her Chiari malformation Review of Systems Review of Systems: The patient denies chest pain, palpitations, shortness of breath, dyspnea on exertion, cough, lower extremity swelling, sore throat, fevers, chills, sweats, diarrhea , constipation, abdominal pain, pelvic pain, blood in urine or stool, dysuria, urinary frequency or urgency, memory loss, loss of consciousness, rash, abnormal bruising or bleeding, focal weakness, numbness or tingling in arms or legs, generalized arthralgias or myalgias, back pain, or night sweats. Patient denies any changes in her vision or loss of vision. The review of systems is otherwise negative other than for that already noted above, and at least 10 systems have been reviewed. Physical Exam Constitutional: WD/WN, vitals as above Neck: trachea midline, no thyromegaly Respiratory: normal respiratory effort, lungs clear to auscultation Cardiovascular: RRR, no murmur, no edema Gastrointestinal (Abdomen): normal bowel sounds, soft, nontender, no hepatosplenomegaly Skin: no rashes, warm and dry Neurologic: PERRL, EOMI, accommodation nl, no face palsy, no dysarthria Cranial Nerves: sense of smell intact, PERRL, EOM intact bilaterally, normal facial strength, tongue midline, normal hearing, able to rotate head bilaterally, able to elevate shoulders bilaterally, no nystagmus and symmetric palate elevation Psychiatric: A+Ox3, euthymic affect Results & Data Results & Data Vital Signs (Past 12 Hours) Vital Signs Temp Pulse Pulse Resp BP Pulse Ox Pulse Ox 05/04/22 18:55 37.2 C 45 L 18 130/62 98 05/04/22 15:35 47 L 05/04/22 15:16 112/60 05/04/22 14:43 52 L 18 97 05/04/22 14:43 97 05/04/22 08:49 37 C 51 L 20 152/60 H 98 05/04/22 07:57 37.0 C 51 L 18 152/60 H 98 O2 Del Method O2 Del Method 05/04/22 18:55 Room Air 05/04/22 15:35 05/04/22 15:16 05/04/22 14:43 Room Air 05/04/22 14:43 Room Air 05/04/22 08:49 Room Air 05/04/22 07:57 Room Air PG Care Time/CCT Total # of Minutes Spent Total Time Spent with Patient: Total time spent is greater than 50% in coordination of care (as documented) at patient's floor/unit and/or counseling patient: Coding Level of Care Code None Diagnoses Intractable headache R51.9 Nausea & vomiting R11.2 Chiari malformation
[2022-05-05] MEDS: SODIUM CHLORIDE 0.9% 500 ML IV SCH ×2 (03:19→05:42)
[2022-05-05] MEDS: dexAMETHasone 4 MG in SYRINGE 0 ML IV SCH ×2 (03:41→10:48)
[2022-05-05] MEDS: FERROUS SULFATE 325 MG TAB PO SCH (08:44)
[2022-05-05 09:32] LABS: Hematocrit (blood only) 40.8 % (37.0-47.0); Hemoglobin 14.2 g/dl (12.0-16.0); Mean Corpuscular Hgb Conc 34.8 g/dL (32.0-36.0); Mean Corpuscular Volume 86.3 fL (80.0-100.0); Platelet Count 323 K/uL (130-400); RDW Coefficient of Variation 12.5 % (11.5-14.5); RDW Standard Deviation 39.2 fL (36.4-46.3); Red Blood Count 4.73 M/uL (4.20-5.40); White Blood Count 16.12 K/ul (4.8-10.8)
[2022-05-05 09:51] LABS: Basophils # (auto) 0.02 K/uL (0-0.2); Basophils % (auto) 0.1 %; Immature Granulocytes # (auto) 0.08 K/uL (0.01-0.20); Immature Granulocytes % (auto) 0.5 %; Lymphocytes % (auto) 6.8 %; Monocytes # (auto) 0.28 K/uL (0.11-0.59); Monocytes % (auto) 1.7 %; Neutrophils # (auto) 14.64 K/uL (1.40-6.50); Neutrophils % (auto) 90.9 %
[2022-05-05] MEDS ORDERED: ACETAMINOPHEN 325 MG TAB PO PRN (10:00)
[2022-05-05 10:07] LABS: Albumin Level 4.2 gm/dl (3.4-5.0); Calcium 8.7 mg/dl (8.6-10.3); Magnesium 2.2 mg/dl (1.7-2.4); Potassium 3.6 mmol/L (3.5-5.1)
[2022-05-05 10:14] LABS: BUN Creatinine Ratio 17.2 (10-20); Creatinine Clr Calc Pharmacy 158.6 ml/min; Est GFR (African American) 136.5 ml/min; Est GFR (Non-African American) 117.8 ml/min; Phosphorus 2.1 mg/dl (2.5-4.9)
--- NOTE | 2022-05-05 13:45 | Discharge Summary ---
Date of Service May 05, 2022 Admission HPI Per Admitting Provider The patient is a 36-year-old female with a past medical history including iron deficiency, pathologic ICD, Chiari malformation, syncope, wrist synovitis, seasonal allergies, tobacco abuse and polysubstance abuse. She has had episodes of headaches with nausea vomiting past, but this has been more severe for his duration and intensity. She reports that she has a pending appointment with neurosurgery in [place] sometime in June, to address possible issues with Chiari malformation. Admission Exam Per Admitting Provider The patient is awake, alert and oriented 3, well developed and well nourished, normocephalic and atraumatic, lying in bed and in no acute distress. HEENT--PERRL, EOMI, mucous membranes and oropharynx dry. Neck--supple. No JVD. No bruits. Thyroid normal, trachea midline, no adenopathy. Heart--normal S1 and S2. No murmurs, rubs or gallops. Lungs--clear bilaterally, no respiratory distress, no accessory muscle use. Abdomen--normal bowel sounds and soft. Nontender. Nondistended, no hernias or masses, no organomegaly. Extremities--no cyanosis or clubbing. No edema. Dermatologic--normal skin turgor, normal color, no abnormal lymph nodes, no rash. Neurologic--cranial nerves II through XII grossly intact. Rheumatologic--normal range of motion. Psychiatric--normal affect. Principal Diagnosis Intractable headache Nausea and vomiting Discharge Exam Constitutional WD/WN, vitals as above Neck trachea midline, no thyromegaly Respiratory normal respiratory effort, lungs clear to auscultation Cardiovascular RRR, no murmur, no edema Gastrointestinal (Abdomen) normal bowel sounds, soft, nontender, no hepatosplenomegaly Skin no rashes, warm and dry Neurologic PERRL, EOMI, accommodation nl, no face palsy, no dysarthria Cranial Nerves: sense of smell intact, PERRL, EOM intact bilaterally, normal facial strength, tongue midline, normal hearing, able to rotate head bilaterally, able to elevate shoulders bilaterally, no nystagmus and symmetric palate elevation Psychiatric A+Ox3, euthymic affect Discharge Data Allergies Allergy/AdvReac Type Severity Reaction Status Date / Time No Known Allergies Allergy . Verified 12/22/21 09:12 Consultations 05/04/22 01:51 ED Decision to Admit Stat Ordered Studies 05/03/22 22:25 CT head/brain wo con Stat Hospital Course (1) Intractable headache: S/P Dexamethasone 10 mg IV x1 in ER and 4 mg IV every [address] head without acute findings She has a pending appointment with neurosurgery in [place] in June 13 Suspect her symptomatology secondary to Chiari malformation Would not pursue additional imaging at this time, unless delayed improvement symptoms, as she has had imaging in the outpatient setting and is anticipated again in June (2) Nausea & vomiting: Zofran as needed (3) Chiari malformation: chronic Has appt in [place] in June Total Time Total Time Spent Total Time Spent (In Minutes): 40 Discharge Plan Discharge Items Patient Disposition: Home - Self-Care Reason For Visit: INTRACTABLE HEADACHE, N/V, CHIARI MALFORMATION Discharge Diagnosis: intractable headache with nausea and vomiting chiari malformation Condition on Discharge: Good Activity: Resume your previous activity Lifting: Gradually increase as tolerated Non-emergency contact: Primary Care Provider Call non-emergency contact if: you have any medication questions, your symptoms worsen and your pain is not controlled Follow-up/Referrals: Zachery Key DO [Primary Care Provider] - 05/12/22 1:00 pm Diet: Regular Addtl Attending Provider Instructions: You were admitted with a headache and associated nausea and vomiting You were treated with IV fluids, magnesium, medications for nausea and steroids You had a CT of yor head with no acute changes, probable known chiari malformation You have an appointment already setup with a neurologist at [place] on June 13 Pending Studies at Discharge: No Stand-Alone [facility] Medications and DC Order Prescriptions: Continued ferrous sulfate 325 mg (65 mg iron) tablet 325 mg PO DAILY Qty: 30 2RF cetirizine 10 mg tablet 10 mg PO DAILY PRN (Reason: allergy symptoms) Qty: 30 5RF Discharge Orders: Discharge Order (Routine); Ordered 05/05/22 Ordered By: Sugar Ryan Admission Data Admit Date/Time: 05/04/22 03:48 Attending Provider: Pérez Diego Admit Provider: Norman Pozo Primary Care Provider: Zachery Key Other Providers: Norman Pozo Other Interventions: Discharge Summary Assessment (RN) Last Done: 05/05/22 15:12 Coding Level of Care Code 20872 INP/OBS DISCH >30 MIN Diagnoses Intractable headache R51.9 Nausea & vomiting R11.2 Chiari malformation
== END 2022-05-05 17:33 | disposition home or self-care (01) | DRG 81 ==
LOC: ED 20:01 → INTOOBSV 05-04 03:48 → EDINP 05-04 03:48 → SUATTDRO 05-04 03:48 → 2N 05-04 04:19